=== PATIENT | female | born 1965 | race Caucasian/White ===

== ENCOUNTER 2016-08-17 20:36 | Emergency (ER) | payer MEDICAID ==
[2016-08-17] MEDS ORDERED: IBUPROFEN 600 MG TABLET PO STA (20:58)
[2016-08-17] MEDS ORDERED: IBUPROFEN 600 MG TABLET PO ONE (21:13)
[2016-08-17] MEDS ORDERED: METHOCARBAMOL 500 MG TABLET PO STA (21:55)
[2016-08-17] MEDS ORDERED: METHOCARBAMOL 500 MG TABLET PO ONE (21:58)
== END 2016-08-17 22:02 | disposition home or self-care (01) ==
DX: S80.212A Abrasion, left knee, initial encounter (principal); S80.211A Abrasion, right knee, initial encounter; S60.512A Abrasion of left hand, initial encounter; S60.511A Abrasion of right hand, initial encounter; S50.312A Abrasion of left elbow, initial encounter; W18.39XA Other fall on same level, initial encounter; R55 Syncope and collapse; M79.1 Myalgia; I10 Essential (primary) hypertension; E78.00 Pure hypercholesterolemia, unspecified; K21.9 Gastro-esophageal reflux disease without esophagitis
CPT/HCPCS: 73080; 73564; 80306; 81003; 93005; 93010; 99284; A9270

== ENCOUNTER 2016-09-18 16:32 | Outpatient (CLI) | payer MEDICAID | END 2016-09-18 16:33 | disposition home or self-care (01) | DX: M77.32 Calcaneal spur, left foot (principal); M25.561 Pain in right knee ==

== ENCOUNTER 2016-11-23 17:40 | Emergency (ER) | payer MEDICAID ==
[2016-11-23] MEDS ORDERED: CLINDAMYCIN 150 MG CAPSULE PO STA (19:15)
[2016-11-23] MEDS ORDERED: HYDROcod/ACETAM 5/325 MG TABLET PO STA (19:18)
--- NOTE | 2016-11-23 19:18 | ED Physician Documentation ---
PD HPI SKIN - Stated complaint Stated Complaint: SPIDER BITE - Chief complaint Chief Complaint: Wound - History obtained from History obtained from: Patient - History of Present Illness Timing - onset: How many days ago (2) Timing - duration: Days (2) Timing - details: Gradual onset Pain level max: 3 Pain level now: 3 Location: Other (R wrist) Quality / character: Painful, Swelling, Draining (states drained pus) Improved by: Other (hasn't taken anything) Worsened by (comment): COMMENT (nothing) Associated symptoms: No: Fever, Myalgias, Joint pain, Headache Contributing factors: Unknown - Additional information Additional information: Patient is a 51-year-old female who states that she noticed a red swollen spot on her arm several days ago. States that this drained pus and there is now increasing redness around this area. Review of Systems Constitutional: denies: Fever GI: denies: Abdominal Pain, Vomiting Musculoskeletal: denies: Neck pain Neurologic: denies: Headache PD PAST MEDICAL HISTORY - Past Medical History Past Medical History: Yes Cardiovascular: Hypertension, High cholesterol Respiratory: None Neuro: None Endocrine/Autoimmune: None GI: GERD CAPACITY MANAGEMENT SPECIALIST: None : None HEENT: None Psych: Anxiety, Panic attacks Musculoskeletal: None Derm: None - Past Surgical History Past Surgical History: Yes General: Cholecystectomy /CAPACITY MANAGEMENT SPECIALIST: Hysterectomy - Present Medications Home Medications: Ambulatory Orders Medication Instructions Recorded Confirmed Citalopram [CeleXA] 50 mg PO DAILY 02/09/15 08/17/16 Gabapentin 1,800 mg PO DAILY 02/09/15 08/17/16 Lisinopril [Zestril] 2.5 mg PO DAILY 02/09/15 08/17/16 busPIRone [Buspar] 7.5 mg PO DAILY 02/09/15 08/17/16 Cetirizine [ZyrTEC] 10 mg PO DAILY 11/23/16 11/23/16 Clindamycin HCl 300 mg PO Q6H #28 capsule 11/23/16 Estradiol [Estrace] 1 mg PO DAILY 11/23/16 11/23/16 Gemfibrozil [Lopid] 600 mg PO DAILY 11/23/16 11/23/16 Hydrocodone/Acetaminophen 1 - 2 each PO Q6H PRN #7 tablet 11/23/16 [Hydrocodon-Acetaminophen 5-325] Hydroxyzine HCl 50 mg PO DAILY 11/23/16 11/23/16 Omeprazole [Omeprazole] 40 mg PO DAILY 11/23/16 11/23/16 Rizatriptan Benzoate [Rizatriptan] 5 mg PO DAILY 11/23/16 11/23/16 - Allergies Allergies/Adverse Reactions: Allergies Allergy/AdvReac Type Severity Reaction Status Date / Time amoxicillin trihydrate * Allergy Rash Verified 11/23/16 17:55 [From Augmentin] diphenhydramine HCl * Allergy Respiratory Verified 11/23/16 17:55 [From Benadryl] morphine Allergy Rash Verified 11/23/16 17:55 potassium clavulanate * Allergy Rash Verified 11/23/16 17:55 [From Augmentin] aspirin AdvReac Unknown Unknown Verified 11/23/16 17:55 cephalexin monohydrate * AdvReac Unknown Rash Verified 11/23/16 17:55 [From Keflex] erythromycin base AdvReac Unknown Rash Verified 11/23/16 17:55 [Erythromycin Base] Sulfa (Sulfonamide AdvReac Unknown Rash Verified 11/23/16 17:55 Antibiotics) bees AdvReac Unknown Emesis Uncoded 11/23/16 17:55 - Social History Does the pt smoke?: No Smoking Status: Never smoker Does the pt drink ETOH?: No Does the pt have substance abuse?: No - Immunizations Immunizations are current?: Yes - POLST Patient has POLST: No PD ED PE NORMAL - Vitals Vital signs reviewed: Yes - General General: Alert and oriented X 3, No acute distress - Derm Derm: Warm and dry - Extremities Extremities: Other (Right wrist, dorsal aspect 2 small lesions with approximately 1.5 cm of surrounding erythema. No lymphangitis. No drainable abscess. No induration.) - Neuro Neuro: Alert and oriented X 3 - Psych Psych: Normal mood, Normal affect Results - Vitals Vitals: Vital Signs - 24 hr 11/23/16 11/23/16 17:52 19:45 Temperature 36.6 C Heart Rate 108 H 82 Respiratory 14 Rate Blood Pressure 115/75 109/77 O2 Saturation 98 98 Oxygen O2 Source Room air PD MEDICAL DECISION MAKING - ED course Complexity details: considered differential, d/w patient ED course: Patient with cellulitis of the right wrist. There is nothing to culture. She has already drained to the wound at home. Will place on antibiotics and follow- up with her PCP. Patient counseled regarding signs and symptoms for which I believe and urgent re-evaluation would be necessary. Patient with good understanding of and agreement to plan and is comfortable going home at this time This document was made in part using voice recognition software. While efforts are made to proofread this document, sound alike and grammatical errors may occur. Departure - Departure Disposition: Home, Self Care Clinical Impression: Cellulitis Qualifiers: Site of cellulitis: extremity Site of cellulitis of extremity: upper extremity Laterality: right Qualified Code(s): L03.113 - Cellulitis of right upper limb Condition: Good Instructions: ED Infec Skin Cellulitis Follow-Up: your,doctor in 3 days [Other] Prescriptions: Clindamycin HCl 300 mg PO Q6H #28 capsule Hydrocodone/Acetaminophen [Hydrocodon-Acetaminophen 5-325] 1 - 2 each PO Q6H PRN #7 tablet PRN Reason: pain Comments: Take all antibiotics until gone. Return if you worsen. Do not drink alcohol or drive while on narcotic pain medicine. Note that many narcotic pain relievers also contain tylenol/acetaminophen. Please ensure that your total dose of acetaminophen from all sources does not exceed 3 grams (3000mg) per day. You may constipated on this medication, take a stool softener such as "Colace" twice a day while you are on it. Also recommend a ypyf-ikz-rnbifky laxative such as senna or MiraLAX any day that you do not have a bowel movement. If you received narcotic pain medication in the emergency department, do not drive or operate machinery for the next 24 hours. Discharge Date/Time: 11/23/16 19:45
[2016-11-23] MEDS ORDERED: HYDROcod/ACETAM 5/325 MG TABLET ONE (19:25)
[2016-11-23] MEDS ORDERED: CLINDAMYCIN 150 MG CAPSULE PO ONE (19:25)
[2016-11-23 19:45] VITALS: BP 109/77
== END 2016-11-23 19:45 | disposition home or self-care (01) ==
LOC: ED 17:40
DX: L03.113 Cellulitis of right upper limb (principal); I10 Essential (primary) hypertension
CPT/HCPCS: 99283; A9270

== ENCOUNTER 2017-08-04 00:04 | Emergency (ER) | payer MEDICAID ==
[2017-08-04] MEDS ORDERED: LORazepam 0.5 MG TABLET PO STA (00:20)
--- NOTE | 2017-08-04 00:20 | ED Physician Documentation ---
PD HPI MHE - Stated complaint Stated Complaint: ANXIETY - Chief complaint Chief Complaint: MHE - History obtained from History obtained from: Patient, Friend - History of Present Illness Primary symptom: Anxiety Timing - onset: Yesterday Contributing factors: Family Similar symptoms before: Work up / diagnostics Recently seen: Not recently seen - Additional information Additional information: Patient is a 52 year old female with a history of anxiety who is presenting to the emergency department for a panic attack and left sided leg pain. patient states that she has her daughter, her daughter's boyfriend and grand children living in her house and it is getting overwhelming. Patient states that she has had multiple panic attacks the last few days. patient reports that she has an appointment with her psychiatrist this week. Patient also complains of left thigh pain and spasm. Patient denies any trauma. Review of Systems Constitutional: denies: Fever, Chills Eyes: reports: Reviewed and negative Ears: reports: Reviewed and negative Nose: reports: Reviewed and negative Throat: reports: Reviewed and negative Cardiac: denies: Chest pain / pressure Respiratory: reports: Reviewed and negative GI: denies: Nausea, Vomiting : reports: Reviewed and negative Skin: denies: Rash, Lesions Musculoskeletal: reports: Extremity pain Neurologic: denies: Generalized weakness, Focal weakness, Numbness Psychiatric: reports: Anxiety Immunocompromised: denies: Immunocompromised PD PAST MEDICAL HISTORY - Past Medical History Cardiovascular: Hypertension, High cholesterol Respiratory: None Neuro: None Endocrine/Autoimmune: None GI: GERD TELEPHONE LINEWORKER: None : None HEENT: None Psych: Anxiety, Panic attacks Musculoskeletal: None Derm: None - Past Surgical History Past Surgical History: Yes General: Cholecystectomy /TELEPHONE LINEWORKER: Hysterectomy HEENT: Tonsil/Adenoidectomy - Present Medications Home Medications: Ambulatory Orders Medication Instructions Recorded Confirmed Citalopram [CeleXA] 50 mg PO DAILY 02/09/15 04/08/17 Gabapentin 1,800 mg PO DAILY 02/09/15 04/08/17 Lisinopril [Zestril] 2.5 mg PO DAILY 02/09/15 04/08/17 busPIRone [Buspar] 7.5 mg PO DAILY 02/09/15 04/08/17 Cetirizine [ZyrTEC] 10 mg PO DAILY 11/23/16 04/08/17 Estradiol [Estrace] 1 mg PO DAILY 11/23/16 04/08/17 Gemfibrozil [Lopid] 600 mg PO DAILY 11/23/16 04/08/17 Omeprazole [Omeprazole] 40 mg PO DAILY 11/23/16 04/08/17 Rizatriptan Benzoate [Rizatriptan] 5 mg PO DAILY 11/23/16 04/08/17 hydrOXYzine HCl [Hydroxyzine HCl] 50 mg PO DAILY 11/23/16 04/08/17 Acetaminophen/Cod 300/30 [Tylenol 1 each PO Q4-6H PRN #7 tablet 04/08/17 #3] Ketotifen Fumarate [Zaditor] 1 drops RIGHTEYE Q8H PRN #1 drops 04/08/17 diazePAM [Valium] 5 - 10 mg PO TID PRN #10 tablet 08/04/17 - Allergies Allergies/Adverse Reactions: Allergies Allergy/AdvReac Type Severity Reaction Status Date / Time amoxicillin trihydrate * Allergy Rash Verified 08/04/17 00:21 [From Augmentin] diphenhydramine HCl * Allergy Respiratory Verified 08/04/17 00:21 [From Benadryl] morphine Allergy Rash Verified 08/04/17 00:21 potassium clavulanate * Allergy Rash Verified 08/04/17 00:21 [From Augmentin] aspirin AdvReac Unknown Unknown Verified 08/04/17 00:21 cephalexin monohydrate * AdvReac Unknown Rash Verified 08/04/17 00:21 [From Keflex] erythromycin base AdvReac Unknown Rash Verified 08/04/17 00:21 [Erythromycin Base] Sulfa (Sulfonamide AdvReac Unknown Rash Verified 08/04/17 00:21 Antibiotics) bees AdvReac Unknown Emesis Uncoded 08/04/17 00:21 - Social History Does the pt smoke?: No Smoking Status: Never smoker Does the pt drink ETOH?: No Does the pt have substance abuse?: No - Immunizations Immunizations are current?: Yes - POLST Patient has POLST: No PD ED PE NORMAL - Vitals Vital signs reviewed: Yes - General General: Alert and oriented X 3 - HEENT HEENT: Atraumatic, Moist mucous membranes - Neck Neck: Supple, no meningeal sign - Cardiac Cardiac: RRR - Respiratory Respiratory: No respiratory distress - Abdomen Abdomen: Soft, Non tender, Non distended - Derm Derm: Normal color, Warm and dry, No rash - Extremities Extremities: No deformity - Neuro Neuro: Alert and oriented X 3, No motor deficit, No sensory deficit, Normal speech Eye Opening: Spontaneous Motor: Obeys Commands Verbal: Oriented GCS Score: 15 PD ED PE EXPANDED - General General: Anxious - Extremities Extremities: Left thigh (mild tenderness to palpation of left thigh no ecchymosis, rash or deformity) Results - Vitals Vitals: Vital Signs - 24 hr 08/04/17 08/04/17 08/04/17 00:05 00:41 01:11 Temperature 36.5 C 36.8 C Heart Rate 91 84 85 Respiratory 16 15 12 Rate Blood Pressure 131/92 H 117/72 113/66 O2 Saturation 100 98 100 Oxygen O2 Source Room air PD MEDICAL DECISION MAKING - ED course Complexity details: reviewed old records, reviewed results, re-evaluated patient , considered differential, d/w family ED course: Patient was seen and examined at bedside. patient was treated with ativan 1mg with good relief. Patient required no further testing at this time and was stable for discharge with outpatient follow up. Departure - Departure Disposition: 01 Home, Self Care Clinical Impression: Anxiety Condition: Good Instructions: ED Panic Attack Follow-Up: Lazaro Spring MD [Primary Care Provider] - Within 3 Days Prescriptions: diazePAM [Valium] 5 - 10 mg PO TID PRN #10 tablet PRN Reason: Spasms Comments: Your symptoms today are being caused by anxiety, and your leg pain is likely muscle spasm. the valium should help both problems. You should also make sure you stay well hydrated and drink electrolyte solution (gatorade). You should follow up with your appointment with your psychiatrist. You may return to the emergency department at any time for new, worsening or uncontrollable symptoms.
[2017-08-04 01:12] VITALS: BP 113/66
== END 2017-08-04 01:10 | disposition home or self-care (01) ==
LOC: ED 00:04
DX: F41.9 Anxiety disorder, unspecified (principal); M79.651 Pain in right thigh; I10 Essential (primary) hypertension; E78.00 Pure hypercholesterolemia, unspecified
CPT/HCPCS: 99283; A9270

== ENCOUNTER 2017-09-09 13:43 | Emergency (ER) | payer MEDICAID ==
[2017-09-09 14:02] VITALS: BP 119/66
--- NOTE | 2017-09-09 15:47 | XRAY Preliminary Report ---
Exam: XR HIP W/PELVIS 2-3V LT IMPRESSION: 1. No fracture or bony malalignment. 2. Mild degenerative change. [facility] SITE ID: [id number]
--- NOTE | 2017-09-09 15:47 | XRAY Report ---
EXAM: LEFT HIP AND PELVIS RADIOGRAPHY EXAM DATE: 09/09/2017 02:55 PM. HISTORY: Left hip pain. Fell 3 days ago. COMPARISONS: None. TECHNIQUE: 3 views including AP pelvis. FINDINGS: Bones: No acute fracture or bone destructive process. Joints: No subluxation. Mild age-related degenerative changes of bilateral hip and SI joints. Intact pubic symphysis. IMPRESSION: 1. No fracture or bony malalignment. 2. Mild degenerative change. [facility] Referring Provider Line: [phone] SITE ID: [id number]
--- NOTE | 2017-09-09 15:50 | XRAY Report ---
EXAM: LEFT KNEE RADIOGRAPHY EXAM DATE: 09/09/2017 02:55 PM. CLINICAL HISTORY: Knee pain. Fell 3 days ago. COMPARISON: None. TECHNIQUE: 4 views. FINDINGS: Bones: No fracture or bone lesion. Intact patella. Joints: No subluxation. Equivocal small joint effusion. Joint spaces are preserved. Minor inferior pa tellar marginal spur. Soft Tissues: No significant findings identified. IMPRESSION: 1. No fracture or bony malalignment. 2. Equivocal small joint effusion. [facility] Referring Provider Line: [phone] SITE ID: [id number]
--- NOTE | 2017-09-09 15:50 | XRAY Preliminary Report ---
Exam: XR KNEE 4 VIEW LT IMPRESSION: 1. No fracture or bony malalignment. 2. Equivocal small joint effusion. [facility] SITE ID: [id number]
== END 2017-09-09 15:40 | disposition left against medical advice (07) ==
LOC: ED 13:43
DX: M25.561 Pain in right knee (principal); Z91.81 History of falling

== ENCOUNTER 2017-09-27 23:35 | Emergency (ER) | payer MEDICAID ==
[2017-09-27] MEDS ORDERED: DEXAMETHASONE 10 MG/ML VIAL PO STA (23:53)
[2017-09-27] MEDS ORDERED: ACETAMINOPHEN 500 MG TABLET PO STA (23:53)
[2017-09-27] MEDS ORDERED: LIDOCAINE PATCH 5% TOP STA (23:53)
--- NOTE | 2017-09-27 23:54 | ED Physician Documentation ---
PD HPI LOWER EXT INJURY - Stated complaint Stated Complaint: KIKE HIP,BACK,LEG PAIN - Chief complaint Chief Complaint: Trauma Ext - History obtained from History obtained from: Patient - History of Present Illness PD HPI LOW EXT INJURY LOCATION: Left, Hip, Upper leg Type of injury: Fall Where injury occurred: Home Timing - onset: How many weeks ago (3) Timing - details: Still present, Intermittant, Waxing and waning Worsened by: Palpating Associated symptoms: No: Weakness, Numbness Similar symptoms before: Work up / diagnostics Recently seen: Emergency Dept - Additional information Additional information: Patient is a 52 year old female presenting to the emergency department for leg and arm pain. patient states that she fell about three weeks ago. Imaging done at that time was within normal limits. patient states that she had to hold her grandchild on her lap for awhile today and her leg started to hurt. she also reports that she has a hard time sleeping on that side due to pain. Patient denied any new trauma. Review of Systems Ten Systems: 10 systems reviewed and negative : denies: Unable to Void, Incontinent Musculoskeletal: reports: Extremity pain, Joint pain. 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: None : None HEENT: None Psych: Anxiety, Panic attacks Musculoskeletal: None Derm: None - Past Surgical History Past Surgical History: Yes General: Cholecystectomy /OBSERVATION ASSISTANT: Hysterectomy HEENT: Tonsil/Adenoidectomy - Present Medications Home Medications: Ambulatory Orders Medication Instructions Recorded Confirmed Citalopram [CeleXA] 50 mg PO DAILY 02/09/15 04/08/17 Gabapentin 1,800 mg PO DAILY 02/09/15 04/08/17 Lisinopril [Zestril] 2.5 mg PO DAILY 02/09/15 04/08/17 busPIRone [Buspar] 7.5 mg PO DAILY 02/09/15 04/08/17 Cetirizine [ZyrTEC] 10 mg PO DAILY 11/23/16 04/08/17 Estradiol [Estrace] 1 mg PO DAILY 11/23/16 04/08/17 Gemfibrozil [Lopid] 600 mg PO DAILY 11/23/16 04/08/17 Omeprazole [Omeprazole] 40 mg PO DAILY 11/23/16 04/08/17 Rizatriptan Benzoate [Rizatriptan] 5 mg PO DAILY 11/23/16 04/08/17 hydrOXYzine HCl [Hydroxyzine HCl] 50 mg PO DAILY 11/23/16 04/08/17 Acetaminophen/Cod 300/30 [Tylenol 1 each PO Q4-6H PRN #7 tablet 04/08/17 #3] Ketotifen Fumarate [Zaditor] 1 drops RIGHTEYE Q8H PRN #1 drops 04/08/17 diazePAM [Valium] 5 - 10 mg PO TID PRN #10 tablet 08/04/17 Cyclobenzaprine [Flexeril] 10 mg PO TID PRN #10 tablet 09/28/17 Lidocaine Patch 5% [Lidoderm Patch] 1 each TOP DAILY #10 patch 09/28/17 - Allergies Allergies/Adverse Reactions: Allergies Allergy/AdvReac Type Severity Reaction Status Date / Time amoxicillin trihydrate * Allergy Rash Verified 09/27/17 23:46 [From Augmentin] diphenhydramine HCl * Allergy Respiratory Verified 09/27/17 23:46 [From Benadryl] morphine Allergy Rash Verified 09/27/17 23:46 potassium clavulanate * Allergy Rash Verified 09/27/17 23:46 [From Augmentin] aspirin AdvReac Unknown Unknown Verified 09/27/17 23:46 cephalexin monohydrate * AdvReac Unknown Rash Verified 09/27/17 23:46 [From Keflex] erythromycin base AdvReac Unknown Rash Verified 09/27/17 23:46 [Erythromycin Base] Sulfa (Sulfonamide AdvReac Unknown Rash Verified 09/27/17 23:46 Antibiotics) bees AdvReac Unknown Emesis Uncoded 08/04/17 00:21 - Social History Does the pt smoke?: Yes Smoking Status: Current every day smoker Does the pt drink ETOH?: No Does the pt have substance abuse?: Yes - Immunizations Immunizations are current?: Yes - POLST Patient has POLST: No PD ED PE NORMAL - Vitals Vital signs reviewed: Yes - General General: Alert and oriented X 3, No acute distress - HEENT HEENT: Atraumatic - Neck Neck: No bony TTP - Cardiac Cardiac: RRR - Respiratory Respiratory: No respiratory distress - Abdomen Abdomen: Non distended - Derm Derm: Normal color, Warm and dry - Extremities Extremities: No deformity, Normal ROM s pain, No edema - Neuro Neuro: Alert and oriented X 3, No motor deficit, Normal speech PD ED PE EXPANDED - Extremities Extremities: Left shoulder (mild tenderness of left shoulder, full rom, no deformity), Left hip (mild tenderness of left hip and thigh, no deformity, full rom) Results - Vitals Vitals: Vital Signs - 24 hr 09/27/17 09/28/17 23:43 00:15 Temperature 36.9 C Heart Rate 106 H 98 Respiratory 17 16 Rate Blood Pressure 136/70 H 126/70 O2 Saturation 100 98 Oxygen O2 Source Room air PD MEDICAL DECISION MAKING - ED course Complexity details: reviewed old records, reviewed results, re-evaluated patient , considered differential, d/w patient ED course: Patient was seen and examined at bedside. patient was well appearing and in no distress. patient had no new trauma and had full rom. No imaging was required at this time. patient was treated with tylenol, decadron and lidoderm. Patient required no further work up at this time and was stable for discharge with outpatient follow up. Departure - Departure Disposition: 01 Home, Self Care Clinical Impression: Leg pain Condition: Good Instructions: ED Strain Muscle Ext Follow-Up: Lazaro Spring MD [Primary Care Provider] - Within 3 Days Prescriptions: Cyclobenzaprine [Flexeril] 10 mg PO TID PRN #10 tablet PRN Reason: Spasms Lidocaine Patch 5% [Lidoderm Patch] 1 each TOP DAILY #10 patch Comments: Your x-rays were reviewed and there were no acute fractures or dislocations. You should continue taking tylenol for pain control. You should also alternate between ice and heat and introduce stretching. You should follow up with your doctor if your symptoms persist. You may return to the emergency department at any time for new, worsening or uncontrollable symptoms. Discharge Date/Time: 09/28/17 00:27
[2017-09-28] MEDS ORDERED: CHERRY SYRUP 10 ML UDC PO ONE (00:09)
[2017-09-28 00:16] VITALS: BP 126/70
== END 2017-09-28 00:27 | disposition home or self-care (01) ==
LOC: ED 23:35
DX: M79.605 Pain in left leg (principal); I10 Essential (primary) hypertension; E78.00 Pure hypercholesterolemia, unspecified; F17.200 Nicotine dependence, unspecified, uncomplicated; Z91.81 History of falling
CPT/HCPCS: 99283; A9270

== ENCOUNTER 2017-11-05 01:32 | Emergency (ER) | payer MEDICAID ==
[2017-11-05] MEDS ORDERED: DEXAMETHASONE 10 MG/ML VIAL PO STA (01:50)
[2017-11-05] MEDS ORDERED: KETOROLAC 60 MG/2 ML VIAL IM STA (01:50)
[2017-11-05] MEDS ORDERED: ONDANSETRON ODT 4 MG TABLET TL STA (01:50)
[2017-11-05] MEDS ORDERED: CHERRY SYRUP 10 ML UDC PO ONE (02:04)
[2017-11-05] MEDS ORDERED: ONDANSETRON ODT 4 MG Prepack 2 TL STA (02:13)
--- NOTE | 2017-11-05 02:13 | ED Physician Documentation ---
History of Present Illness - Stated complaint Stated Complaint: ANXIETY,VOMITING,FEVER - Chief complaint Chief Complaint: General - History obtained from History obtained from: Patient - History of Present Illness Timing: How many days ago (4) - Additonal information Additional information: Patient is a 52 year old female with a history of anxiety who is presenting to the emergency department for anxiety and vomiting. patient states that on , (4 days prior) Patient smoked some marijuana and it was laced with either ecstasy or cocaine, the next day patient did a "dab" as well. Patient states that since she has had intermittent nausea and vomiting as well as feeling anxious. Patient also reports a sore throat and swelling in her glands. Review of Systems Constitutional: denies: Fever, Chills Nose: denies: Congestion Throat: reports: Sore throat Cardiac: denies: Chest pain / pressure, Palpitations GI: reports: Nausea, Vomiting. denies: Constipation, Diarrhea : reports: Reviewed and negative Skin: denies: Rash, Lesions Psychiatric: reports: Anxiety. denies: Suicidal, Homicidal PD PAST MEDICAL HISTORY - Past Medical History Past Medical History: Yes Cardiovascular: Hypertension, High cholesterol Respiratory: None Neuro: None Endocrine/Autoimmune: None GI: GERD TREE CUTTER: None : None HEENT: None Psych: Anxiety, Panic attacks Musculoskeletal: None Derm: None - Past Surgical History Past Surgical History: Yes General: Cholecystectomy /TREE CUTTER: Hysterectomy HEENT: Tonsil/Adenoidectomy - Present Medications Home Medications: Ambulatory Orders Medication Instructions Recorded Confirmed Citalopram [CeleXA] 50 mg PO DAILY 02/09/15 04/08/17 Gabapentin 1,800 mg PO DAILY 02/09/15 04/08/17 Lisinopril [Zestril] 2.5 mg PO DAILY 02/09/15 04/08/17 busPIRone [Buspar] 7.5 mg PO DAILY 02/09/15 04/08/17 Cetirizine [ZyrTEC] 10 mg PO DAILY 11/23/16 04/08/17 Estradiol [Estrace] 1 mg PO DAILY 11/23/16 04/08/17 Gemfibrozil [Lopid] 600 mg PO DAILY 11/23/16 04/08/17 Omeprazole [Omeprazole] 40 mg PO DAILY 11/23/16 04/08/17 Rizatriptan Benzoate [Rizatriptan] 5 mg PO DAILY 11/23/16 04/08/17 hydrOXYzine HCl [Hydroxyzine HCl] 50 mg PO DAILY 11/23/16 04/08/17 Acetaminophen/Cod 300/30 [Tylenol 1 each PO Q4-6H PRN #7 tablet 04/08/17 #3] Ketotifen Fumarate [Zaditor] 1 drops RIGHTEYE Q8H PRN #1 drops 04/08/17 diazePAM [Valium] 5 - 10 mg PO TID PRN #10 tablet 08/04/17 Cyclobenzaprine [Flexeril] 10 mg PO TID PRN #10 tablet 09/28/17 Lidocaine Patch 5% [Lidoderm Patch] 1 each TOP DAILY #10 patch 09/28/17 Ondansetron Odt [Zofran] 4 mg TL Q6H PRN #14 tablet 11/05/17 - Allergies Allergies/Adverse Reactions: Allergies Allergy/AdvReac Type Severity Reaction Status Date / Time amoxicillin trihydrate * Allergy Rash Verified 11/05/17 01:43 [From Augmentin] diphenhydramine HCl * Allergy Respiratory Verified 11/05/17 01:43 [From Benadryl] morphine Allergy Rash Verified 11/05/17 01:43 potassium clavulanate * Allergy Rash Verified 11/05/17 01:43 [From Augmentin] aspirin AdvReac Unknown Unknown Verified 11/05/17 01:43 cephalexin monohydrate * AdvReac Unknown Rash Verified 11/05/17 01:43 [From Keflex] erythromycin base AdvReac Unknown Rash Verified 11/05/17 01:43 [Erythromycin Base] Sulfa (Sulfonamide AdvReac Unknown Rash Verified 11/05/17 01:43 Antibiotics) bees AdvReac Unknown Emesis Uncoded 08/04/17 00:21 - Social History Does the pt smoke?: Yes Smoking Status: Current every day smoker Does the pt drink ETOH?: No Does the pt have substance abuse?: Yes Substance Use and Type: Marijuana - Immunizations Immunizations are current?: Yes - POLST Patient has POLST: No PD ED PE NORMAL - Vitals Vital signs reviewed: Yes - General General: Alert and oriented X 3 - HEENT HEENT: Atraumatic - Cardiac Cardiac: RRR - Respiratory Respiratory: No respiratory distress - Abdomen Abdomen: Non distended - Derm Derm: Normal color, Warm and dry - Extremities Extremities: No deformity - Neuro Neuro: Alert and oriented X 3, No motor deficit Eye Opening: Spontaneous Motor: Obeys Commands Verbal: Oriented GCS Score: 15 PD ED PE EXPANDED - HEENT HEENT: Pharyngeal erythema. 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 No: Depressed, Suicidal, Homicidal Results - Vitals Vitals: Vital Signs - 24 hr 11/05/17 11/05/17 01:41 01:58 Temperature 36.9 C Heart Rate 108 H Respiratory 17 17 Rate Blood Pressure 150/86 H O2 Saturation 99 Oxygen O2 Source Room air - Labs Labs: Laboratory Tests 11/05/17 01:47 Group A Strep Rapid Negative PD MEDICAL DECISION MAKING - ED course Complexity details: reviewed old records, reviewed results, re-evaluated patient , considered differential, d/w patient ED course: Patient was seen and examined at bedside. rapid strep was performed. patient was treated with zofran and decadron. Patient's rapid strep was negative. patient was able to tolerate PO without difficulty. Patient required no further work up and was stable for discharge with outpatient follow up. Departure - Departure Disposition: 01 Home, Self Care Clinical Impression: Vomiting Condition: Good Instructions: ED Nausea Vomiting Follow-Up: Lazaro Spring MD [Primary Care Provider] - Within 3 Days Prescriptions: Ondansetron Odt [Zofran] 4 mg TL Q6H PRN #14 tablet PRN Reason: Nausea / Vomiting Comments: Your diagnostics today were within normal limits. Rapid strep is negative but it will be sent for a throat culture. You can take the zofran as needed for nausea and make sure you stay well hydrated. You should follow up with your doctor if your symptoms persist. You may return to the emergency department at any time for new, worsening or uncontrollable symptoms.
[2017-11-05 02:20] VITALS: BP 135/83
== END 2017-11-05 02:21 | disposition home or self-care (01) ==
LOC: ED 01:32
DX: R11.10 Vomiting, unspecified (principal); I10 Essential (primary) hypertension; E78.00 Pure hypercholesterolemia, unspecified; F17.200 Nicotine dependence, unspecified, uncomplicated
CPT/HCPCS: 87070; 87077; 87430; 99282; 99283; A9270; Q0162

== ENCOUNTER 2018-04-27 20:41 | Emergency (ER) | payer MEDICAID ==
[2018-04-27 20:54] VITALS: BP 108/72
--- NOTE | 2018-04-27 22:34 | ED Physician Documentation ---
PD HPI SKIN - Stated complaint Stated Complaint: ITCHING ALL OVER - Chief complaint Chief Complaint: Allergic Rx - History obtained from History obtained from: Patient - History of Present Illness Timing - onset: How many days ago (2-3) Timing - duration: Days Timing - details: Gradual onset, Still present, Waxing and waning Location: Bodywide Quality / character: Itchy, Burning Associated symptoms: No: Fever, Myalgias, Facial swelling, Dyspnea, N/V/D Contributing factors: Exposed to medication (on abx for UTI, and has had swelling) Similar symptoms before: Has not had sx before Recently seen: Not recently seen Review of Systems Constitutional: denies: Fever, Myalgias Ears: denies: Ear pain, Drainage/discharge, Tinnitus/ringing Nose: denies: Rhinorrhea / runny nose, Congestion Throat: denies: Sore throat, Swollen tonsils Cardiac: denies: Chest pain / pressure, Palpitations Respiratory: denies: Dyspnea, Cough, Wheezing Neurologic: reports: Generalized weakness. 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 : None HEENT: None Psych: Anxiety, Panic attacks Musculoskeletal: None Derm: None - Past Surgical History Past Surgical History: Yes General: Cholecystectomy /PIANO BUILDER: Hysterectomy HEENT: Tonsil/Adenoidectomy - Present Medications Home Medications: Ambulatory Orders Medication Instructions Recorded Confirmed Gabapentin 1,800 mg PO DAILY 02/09/15 04/08/17 Cetirizine [ZyrTEC] 10 mg PO DAILY 11/23/16 04/08/17 Gemfibrozil [Lopid] 600 mg PO DAILY 11/23/16 04/08/17 Omeprazole 40 mg PO DAILY 11/23/16 04/08/17 Cyclobenzaprine [Flexeril] 10 mg PO TID PRN #10 tablet 09/28/17 Dexamethasone [Decadron] 4 mg PO DAILY #5 tablet 04/27/18 LORazepam [Ativan] 1 mg PO ONCE 04/27/18 Vortioxetine Hydrobromide 04/27/18 [Trintellix] hydrOXYzine PAMOATE [Vistaril] 25 mg PO Q6H PRN #30 capsule 04/27/18 - Allergies Allergies/Adverse Reactions: Allergies Allergy/AdvReac Type Severity Reaction Status Date / Time amoxicillin trihydrate * Allergy Rash Verified 04/27/18 20:54 [From Augmentin] diphenhydramine HCl * Allergy Respiratory Verified 04/27/18 20:54 [From Benadryl] morphine Allergy Rash Verified 04/27/18 20:54 potassium clavulanate * Allergy Rash Verified 04/27/18 20:54 [From Augmentin] aspirin AdvReac Unknown Unknown Verified 04/27/18 20:54 cephalexin monohydrate * AdvReac Unknown Rash Verified 04/27/18 20:54 [From Keflex] erythromycin base AdvReac Unknown Rash Verified 04/27/18 20:54 [Erythromycin Base] Sulfa (Sulfonamide AdvReac Unknown Rash Verified 04/27/18 20:54 Antibiotics) bees AdvReac Unknown Emesis Uncoded 04/27/18 20:54 - Social History Does the pt smoke?: Yes Smoking Status: Current every day smoker Does the pt drink ETOH?: No Does the pt have substance abuse?: Yes - Immunizations Immunizations are current?: Yes - POLST Patient has POLST: No PD ED PE NORMAL - Vitals Vital signs reviewed: Yes - General General: Alert and oriented X 3, Well developed/nourished, Other (ppears itchy) - HEENT HEENT: Pharynx benign - Neck Neck: Supple, no meningeal sign, No adenopathy - Cardiac Cardiac: RRR, No murmur - Respiratory Respiratory: Clear bilaterally - Abdomen Abdomen: Non tender - Female Female : Pt declined - Back Back: No spinal TTP Results - Vitals Vitals: Oxygen O2 Source Room air Departure - Departure Disposition: 01 Home, Self Care Clinical Impression: Pruritic rash Condition: Stable Record reviewed to determine appropriate education?: Yes Instructions: ED Allergic Reaction General Other Follow-Up: Lazaro Spring MD [Primary Care Provider] - Prescriptions: Dexamethasone [Decadron] 4 mg PO DAILY #5 tablet hydrOXYzine PAMOATE [Vistaril] 25 mg PO Q6H PRN #30 capsule PRN Reason: Itching Comments: Continue usual Zyrtec daily and other medications. Add hydroxyzine if needed for itching. Use Decadron steroid daily for 5 more days. Recheck if not improving into tomorrow and the next day. Follow-up with your primary care if not completely resolved over several days or if recurrent episodes in the near future. Discharge Date/Time: 04/27/18 23:53
[2018-04-27] MEDS ORDERED: DEXAMETHASONE 10 MG/ML VIAL PO STA (22:45)
[2018-04-27] MEDS ORDERED: ACETAMINOPHEN 325 MG TABLET PO STA (22:45)
[2018-04-27] MEDS ORDERED: hydrOXYzine PAMOATE 25 MG CAPSULE PO STA (22:45)
[2018-04-27] MEDS ORDERED: CHERRY SYRUP 10 ML UDC PO ONE (23:46)
== END 2018-04-27 23:53 | disposition home or self-care (01) ==
LOC: ED 20:41
DX: R21 Rash and other nonspecific skin eruption (principal); L29.9 Pruritus, unspecified; I10 Essential (primary) hypertension; F17.200 Nicotine dependence, unspecified, uncomplicated
CPT/HCPCS: 99283; A9270

== ENCOUNTER 2018-05-06 18:49 | Emergency (ER) | payer MEDICAID ==
[2018-05-06] MEDS ORDERED: ONDANSETRON 4 MG/2 ML VIAL IVP STA (19:03)
[2018-05-06] MEDS ORDERED: SODIUM CHLORIDE 0.9% 1,000 ML IV ONE (19:03)
[2018-05-06] MEDS ORDERED: KETOROLAC 15 MG/ML VIAL IVP STA (19:17)
[2018-05-06] MEDS ORDERED: fentaNYL 100 MCG/2 ML VIAL IVP STA (19:17)
[2018-05-06 19:28] LABS: BASOPHILS % (AUTO) 0.6 %; EOSINOPHILS # (AUTO) 0.2 10^3/uL (0.0-0.7); EOSINOPHILS % (AUTO) 2.9 %; HGB - HEMOGLOBIN 12.4 g/dL (12.0-16.0); LYMPHOCYTES # (AUTO) 2.9 10^3/uL (1.5-3.5); LYMPHOCYTES % (AUTO) 40.6 %; MEAN CORPUSCULAR HEMOGLOBIN 30.6 pg (27.0-31.0); MEAN CORPUSCULAR HGB CONC 34.6 g/dL (32.0-36.0); MEAN CORPUSCULAR VOLUME 88.4 fL (81.0-99.0); MEAN PLATELET VOLUME 7.8 fL (7.9-10.8); MONOCYTES # (AUTO) 0.5 10^3/uL (0.0-1.0); MONOCYTES % (AUTO) 6.6 %; NEUTROPHILS # (AUTO) 3.5 10^3/uL (1.5-6.6); NEUTROPHILS % (AUTO) 49.3 %; PLT - PLATELET COUNT 263 10^3/uL (130-450); RED BLOOD COUNT 4.04 10^6/uL (4.20-5.40); RED CELL DISTRIBUTION WIDTH 12.5 % (12.0-15.0); WHITE BLOOD COUNT 7.1 x10^3/uL (4.8-10.8)
[2018-05-06 19:37] LABS: BILIRUBIN,URINE NEGATIVE (NEGATIVE); GLUCOSE, URINE (UA) NEGATIVE (NEGATIVE); KETONES,URINE (UA) NEGATIVE (NEGATIVE); LEUKOCYTE ESTERASE, URINE TRACE (NEGATIVE); NITRITE,URINE NEGATIVE (NEGATIVE); OCCULT BLOOD,URINE NEGATIVE (NEGATIVE); PROTEIN,URINE NEGATIVE (NEGATIVE); UROBILINOGEN,URINE 0.2 (NORMAL) E.U./dL (NORMAL)
[2018-05-06 19:44] LABS: ALBUMIN 4.6 g/dL (3.2-5.5); ALBUMIN/GLOBULIN RATIO 1.3 (1.0-2.2); BILIRUBIN,TOTAL 0.3 mg/dL (0.2-1.0); CALCIUM 9.5 mg/dL (8.5-10.3); CREATININE 0.7 mg/dL (0.4-1.0); TOTAL PROTEIN 8.2 g/dL (6.7-8.2)
[2018-05-06] MEDS ORDERED: IOVERSOL 320 100 ML VIAL IVP ONE ×2 (19:46→20:59)
[2018-05-06 19:48] LABS: CLARITY,URINE CLEAR (CLEAR)
[2018-05-06 19:52] LABS: RBC,URINE None Seen /HPF (0-5); SQUAMOUS EPITHELIAL CELL,UR FEW Squamous (<= Few)
[2018-05-06 19:53] LABS: BACTERIA,URINE Rare /HPF (None Seen); CRYSTALS,URINE 3-5 Calcium Oxalate /LPF
--- NOTE | 2018-05-06 21:10 | CT Report ---
Reason: rlq pain Procedure Date: 05/06/2018 Accession Number: [id number] / [id number] Procedure: CT - Abdomen/Pelvis W/ CPT Code: FULL RESULT: EXAM: CT ABDOMEN AND PELVIS EXAM DATE: 05/06/2018 08:13 PM. CLINICAL HISTORY: Rlq pain. COMPARISONS: None. TECHNIQUE: Routine helical CT imaging was performed through the abdomen and pelvis. IV contrast: OPTIRAY 320 90mL. Enteric contrast: No. Reconstructions: Coronal and sagittal. In accordance with CT protocol optimization, one or more of the following dose reduction techniques were utilized for this exam: automated exposure control, adjustment of mA and/or KV based on patient size, or use of iterative reconstructive technique. FINDINGS: Lung Bases: Unremarkable. Liver: Normal. No masses. Gallbladder/Bile Ducts: Gallbladder is surgically absent. Spleen: Normal. Pancreas: Normal. Adrenal Glands: Normal. Kidneys: There is a 6 mm nonobstructing right kidney stone. No hydronephrosis or renal mass. Peritoneal Cavity/Bowel: Normal. No free fluid, free air or adenopathy. No masses or acute inflammatory process. The appendix is located within the low pelvis and appears normal. Pelvic Organs: Uterus is absent. Urinary bladder appears unremarkable. Vasculature: No aneurysms or other significant abnormality. Bones: There is endplate sclerosis and degenerative disease at L5-S1 of the spine. No fracture or subluxation. Other: None. IMPRESSION: 1. 6 mm nonobstructing right kidney stone. 2. Normal appendix. 3. Previous cholecystectomy. 4. No other localizing acute inflammatory process is demonstrated. RADIA
--- NOTE | 2018-05-06 22:16 | ED Physician Documentation ---
PD HPI ABD PAIN - Stated complaint Stated Complaint: VOMITING/ABD PX - Chief complaint Chief Complaint: Abd Pain - Additional information Additional information: 53-year-old female presents the emergency department with flank pain that radiat es into her abdomen that started this afternoon. The patient is denying dysuria, hematuria or focal abdominal pain. The patient reports that this is similar to when she had a kidney infection in the past. Symptoms are described as moderate. No triggering factors. No relieving factors. No other associated symptoms. Review of Systems Constitutional: reports: Chills. denies: Fever Eyes: denies: Discharge Ears: denies: Ear pain Throat: denies: Sore throat Cardiac: denies: Chest pain / pressure Respiratory: denies: Cough GI: reports: Abdominal Pain, Nausea, Other (flank pain) : denies: Dysuria, Unable to Void Skin: denies: Lesions Musculoskeletal: reports: Back pain Neurologic: denies: Generalized weakness Psychiatric: denies: Hallucinations Immunocompromised: denies: Chemotherapy PD PAST MEDICAL HISTORY - Past Medical History Past Medical History: Yes Cardiovascular: Hypertension, High cholesterol Respiratory: None Neuro: None Endocrine/Autoimmune: None GI: GERD IMPREGNATOR: None : None, Other HEENT: None Psych: Anxiety, Panic attacks Musculoskeletal: None Derm: None Other Past Medical History: cervical cancer - Past Surgical History Past Surgical History: Yes General: Cholecystectomy /IMPREGNATOR: Hysterectomy HEENT: Tonsil/Adenoidectomy - Present Medications Home Medications: Ambulatory Orders Medication Instructions Recorded Confirmed Gabapentin 1,800 mg PO DAILY 02/09/15 04/08/17 Cetirizine [ZyrTEC] 10 mg PO DAILY 11/23/16 04/08/17 Gemfibrozil [Lopid] 600 mg PO DAILY 11/23/16 04/08/17 Omeprazole 40 mg PO DAILY 11/23/16 04/08/17 Cyclobenzaprine [Flexeril] 10 mg PO TID PRN #10 tablet 09/28/17 Dexamethasone [Decadron] 4 mg PO DAILY #5 tablet 04/27/18 LORazepam [Ativan] 1 mg PO ONCE 04/27/18 Vortioxetine Hydrobromide 04/27/18 [Trintellix] hydrOXYzine PAMOATE [Vistaril] 25 mg PO Q6H PRN #30 capsule 04/27/18 Naproxen 500 mg PO BID PRN #60 tablet 05/06/18 Ondansetron HCl [Zofran] 4 mg PO Q6HR PRN #30 tablet 05/06/18 - Allergies Allergies/Adverse Reactions: Allergies Allergy/AdvReac Type Severity Reaction Status Date / Time amoxicillin trihydrate * Allergy Rash Verified 04/27/18 20:54 [From Augmentin] diphenhydramine HCl * Allergy Respiratory Verified 04/27/18 20:54 [From Benadryl] morphine Allergy Rash Verified 04/27/18 20:54 potassium clavulanate * Allergy Rash Verified 04/27/18 20:54 [From Augmentin] aspirin AdvReac Unknown Unknown Verified 04/27/18 20:54 cephalexin monohydrate * AdvReac Unknown Rash Verified 04/27/18 20:54 [From Keflex] erythromycin base AdvReac Unknown Rash Verified 04/27/18 20:54 [Erythromycin Base] Sulfa (Sulfonamide AdvReac Unknown Rash Verified 04/27/18 20:54 Antibiotics) bees AdvReac Unknown Emesis Uncoded 04/27/18 20:54 - Social History Does the pt smoke?: Yes Smoking Status: Current every day smoker Does the pt drink ETOH?: No Does the pt have substance abuse?: No Substance Use and Type: Marijuana, Other - Immunizations Immunizations are current?: Yes - POLST Patient has POLST: No PD ED PE NORMAL - General General: Alert and oriented X 3, No acute distress - HEENT HEENT: Atraumatic, PERRL, EOMI, Ears normal - Neck Neck: Supple, no meningeal sign - Cardiac Cardiac: RRR, Strong equal pulses - Respiratory Respiratory: No respiratory distress, Clear bilaterally - Abdomen Abdomen: Soft, Non distended. No: Non tender (The patient has tenderness in the right flank and right sided abdomen, no rebound or peritoneal signs) - Back Back: No spinal TTP - Derm Derm: Normal color - Extremities Extremities: No deformity, Normal ROM s pain, No edema - Neuro Neuro: Alert and oriented X 3, Normal speech - Psych Psych: Normal affect Results - Vitals Vitals: Vital Signs - 24 hr 05/06/18 05/06/18 18:59 20:51 Temperature 36.9 C 36.2 C L Heart Rate 98 72 Respiratory 18 16 Rate Blood Pressure 119/75 109/73 O2 Saturation 99 100 Oxygen O2 Source Room air - Labs Labs: Laboratory Tests 05/06/18 05/06/18 05/06/18 19:00 19:14 19:14 WBC 7.1 RBC 4.04 L Hgb 12.4 Hct 35.7 L MCV 88.4 MCH 30.6 MCHC 34.6 RDW 12.5 Plt Count 263 MPV 7.8 L Neut # (Auto) 3.5 Lymph # (Auto) 2.9 [place] # (Auto) 0.5 Eos # (Auto) 0.2 Baso # (Auto) 0.0 Absolute Nucleated RBC 0.00 Nucleated RBC % 0.0 Sodium 139 Potassium 3.3 L Chloride 102 Carbon Dioxide 29 Anion Gap 8.0 BUN 21 H Creatinine 0.7 Estimated GFR (MDRD) 88 L Glucose 109 H Calcium 9.5 Total Bilirubin 0.3 AST 15 ALT 19 Alkaline Phosphatase 67 Total Protein 8.2 Albumin 4.6 Globulin 3.6 Albumin/Globulin Ratio 1.3 Lipase 61 H Urine Color YELLOW Urine Clarity CLEAR Urine pH 6.0 Ur Specific [place] 1.025 Urine Protein NEGATIVE Urine Glucose (UA) NEGATIVE Urine Ketones NEGATIVE Urine Occult Blood NEGATIVE Urine Nitrite NEGATIVE Urine Bilirubin NEGATIVE Urine Urobilinogen 0.2 (NORMAL) Ur Leukocyte Esterase TRACE H Urine RBC None Seen Urine WBC 0-3 Ur Squamous Epith Cells FEW Squamous Urine Crystals 3-5 Calcium Oxalate Urine Bacteria Rare Ur Microscopic Review INDICATED Urine Culture Comments INDICATED - Rads (name of study) CT abd/pelvis Radiology: Final report received (IMPRESSION: 1. 6 mm nonobstructing right kidney stone. 2. Normal appendix. 3. Previous cholecystectomy. 4. No other localizing acute inflammatory process is demonstrated. ), See rad report PD MEDICAL DECISION MAKING - ED course ED course: Reevaluation the patient is resting comfortably and her workup does not show any acute abnormality that would necessitate admission to the hospital or acute surgical consultation. The patient appears appropriate for discharge and ongoing outpatient management. I discussed with her the findings and plan she understands and agrees. I discussed warning signs and recommended returning to the emergency department for any worsening or any concerns. Departure - Departure Disposition: 01 Home, Self Care Clinical Impression: Flank pain, acute, Kidney stone Condition: Good Instructions: Abdominal Pain, ED Flank Pain Uncertain Cause, ED Stone Kidney Undescended No Sx Follow-Up: Lazaro Spring MD [Primary Care Provider] - Prescriptions: Ondansetron HCl [Zofran] 4 mg PO Q6HR PRN #30 tablet PRN Reason: Nausea / Vomiting Naproxen 500 mg PO BID PRN #60 tablet PRN Reason: Pain Comments: Please return to the emergency department for worsening symptoms or any concerns
[2018-05-06 22:33] VITALS: BP 126/82
== END 2018-05-06 22:32 | disposition home or self-care (01) ==
LOC: ED 18:49
DX: N20.0 Calculus of kidney (principal); I10 Essential (primary) hypertension; F17.200 Nicotine dependence, unspecified, uncomplicated
CPT/HCPCS: 36415; 74177; 80053; 81001; 83690; 85025; 87086; 96361; 96374; 99283; 99284; Q9967; 81003

== ENCOUNTER 2018-05-19 12:05 | Emergency (ER) | payer MEDICAID ==
[2018-05-19 12:48] LABS: BASOPHILS % (AUTO) 0.6 %; EOSINOPHILS # (AUTO) 0.2 10^3/uL (0.0-0.7); EOSINOPHILS % (AUTO) 3.2 %; HGB - HEMOGLOBIN 12.6 g/dL (12.0-16.0); LYMPHOCYTES # (AUTO) 3.1 10^3/uL (1.5-3.5); MEAN CORPUSCULAR HEMOGLOBIN 30.1 pg (27.0-31.0); MEAN CORPUSCULAR HGB CONC 34.4 g/dL (32.0-36.0); MEAN CORPUSCULAR VOLUME 87.7 fL (81.0-99.0); MEAN PLATELET VOLUME 7.8 fL (7.9-10.8); MONOCYTES # (AUTO) 0.6 10^3/uL (0.0-1.0); MONOCYTES % (AUTO) 7.8 %; NEUTROPHILS # (AUTO) 3.4 10^3/uL (1.5-6.6); NEUTROPHILS % (AUTO) 46.4 %; PLT - PLATELET COUNT 245 10^3/uL (130-450); RED BLOOD COUNT 4.17 10^6/uL (4.20-5.40); RED CELL DISTRIBUTION WIDTH 12.8 % (12.0-15.0); WHITE BLOOD COUNT 7.4 x10^3/uL (4.8-10.8)
[2018-05-19 12:56] LABS: BILIRUBIN,URINE NEGATIVE (NEGATIVE); GLUCOSE, URINE (UA) NEGATIVE (NEGATIVE); KETONES,URINE (UA) NEGATIVE (NEGATIVE); LEUKOCYTE ESTERASE, URINE NEGATIVE (NEGATIVE); NITRITE,URINE NEGATIVE (NEGATIVE); OCCULT BLOOD,URINE NEGATIVE (NEGATIVE); PROTEIN,URINE NEGATIVE (NEGATIVE); UROBILINOGEN,URINE 0.2 (NORMAL) E.U./dL (NORMAL)
[2018-05-19 12:59] LABS: ALBUMIN 4.3 g/dL (3.2-5.5); ALBUMIN/GLOBULIN RATIO 1.1 (1.0-2.2); BILIRUBIN,TOTAL 0.3 mg/dL (0.2-1.0); CALCIUM 9.1 mg/dL (8.5-10.3); CREATININE 0.7 mg/dL (0.4-1.0); TOTAL PROTEIN 8.1 g/dL (6.7-8.2)
[2018-05-19 13:00] LABS: CLARITY,URINE CLEAR (CLEAR)
[2018-05-19 13:24] LABS: HCG UR QUAL NEGATIVE
[2018-05-19] MEDS ORDERED: ONDANSETRON 4 MG/2 ML VIAL IVP STA ×2 (14:08→15:47)
[2018-05-19] MEDS ORDERED: SODIUM CHLORIDE 0.9% 1,000 ML IV ONE (14:08)
[2018-05-19] MEDS ORDERED: HYDROmorphone 1 MG/ML CARPUJECT IVP STA (15:47)
--- NOTE | 2018-05-19 17:26 | CT Report ---
Reason: flank pain, hx kidney stone Procedure Date: 05/19/2018 Accession Number: [id number] / [id number] Procedure: CT - Abdomen/Pelvis W/O CPT Code: FULL RESULT: EXAM: CT ABDOMEN AND PELVIS (CT KUB) EXAM DATE: 05/19/2018 05:06 PM. CLINICAL HISTORY: Right flank pain. COMPARISONS: 05/06/2018. TECHNIQUE: Routine axial helical CT imaging was performed through the abdomen and pelvis without IV contrast. Reconstructions: Coronal and sagittal. In accordance with CT protocol optimization, one or more of the following dose reduction techniques were utilized for this exam: automated exposure control, adjustment of mA and/or KV based on patient size, or use of iterative reconstructive technique. FINDINGS: Lung Bases: Unremarkable. Right Kidney/Ureter: Nonobstructing lower pole stone measuring 5.4 mm, unchanged. Otherwise unremarkable. No ureteral stone or hydronephrosis. Left Kidney/Ureter: No stones, hydronephrosis, or hydroureter. No perinephric fat stranding. Other Solid Organs: Noncontrast images of the solid organs are grossly unremarkable. Gallbladder/Bile Ducts: Surgically absent. No ductal dilation. Peritoneal Cavity: No free fluid, free air or nixon adenopathy. Bowel is grossly unremarkable. Normal appendix. Pelvic Organs: Unremarkable urinary bladder. Absent uterus. Vasculature: Unremarkable. Other: Tiny left inguinal hernia with fat involvement only. IMPRESSION: Nonobstructing right renal stone measuring 5.4 mm, unchanged. Otherwise unremarkable. RADIA
[2018-05-19] MEDS ORDERED: oxyCODONE 5 MG TABLET PO STA (17:45)
--- NOTE | 2018-05-19 17:53 | ED Physician Documentation ---
History of Present Illness - Stated complaint Stated Complaint: LOWER R SIDE BACK PX/VOMITING - Chief complaint Chief Complaint: Abd Pain - History obtained from History obtained from: Patient - History of Present Illness Timing: How many weeks ago (2) Pain level max: 8 Pain level now: 8 Quality: sharp Radiates to: no Improved by: Percocet, phenergan Worsened by: nothing Associated symptoms: nausea - Additonal information Additional information: 53-year-old female with history of high cholesterol and resolved hypertension here with complaint of right flank pain the past 2 weeks associated with nausea. Patient stated was had a CAT scan done here in the emergency room May 06 which showed a 6 mm right kidney stone. Patient was discharged on naproxen and Zofran. Patient claims she is allergic to NSAIDs. She went to see her in primary doctor and she was prescribed Phenergan and Percocet.Patient stated she ran out of Percocet and Phenergan and so her pain is strong again. Review of Systems Ten Systems: 10 systems reviewed and negative Constitutional: denies: Fever Cardiac: denies: Chest pain / pressure GI: reports: Nausea. 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 /SUPERVISOR COATING: Hysterectomy HEENT: Tonsil/Adenoidectomy - Present Medications Home Medications: Ambulatory Orders Medication Instructions Recorded Confirmed Gabapentin 1,800 mg PO DAILY 02/09/15 04/08/17 Cetirizine [ZyrTEC] 10 mg PO DAILY 11/23/16 04/08/17 Gemfibrozil [Lopid] 600 mg PO DAILY 11/23/16 04/08/17 Omeprazole 40 mg PO DAILY 11/23/16 04/08/17 LORazepam [Ativan] 1 mg PO ONCE 04/27/18 Vortioxetine Hydrobromide 04/27/18 [Trintellix] Naproxen 500 mg PO BID PRN #60 tablet 05/06/18 Oxycodone HCl/Acetaminophen 1 - 2 each PO Q6H PRN #14 tablet 05/19/18 [Percocet 5-325 mg Tablet] Promethazine [Phenergan] 25 mg PO Q6H PRN #10 tab 05/19/18 - Allergies Allergies/Adverse Reactions: Allergies Allergy/AdvReac Type Severity Reaction Status Date / Time amoxicillin trihydrate * Allergy Rash Verified 05/19/18 12:27 [From Augmentin] diphenhydramine HCl * Allergy Respiratory Verified 05/19/18 12:27 [From Benadryl] hydrocodone Allergy Itching Verified 05/19/18 12:28 morphine Allergy Rash Verified 05/19/18 12:27 NSAIDS (Non-Steroidal Allergy Unknown Verified 05/19/18 14:24 Anti-Inflamma potassium clavulanate * Allergy Rash Verified 05/19/18 12:27 [From Augmentin] aspirin AdvReac Unknown Unknown Verified 05/19/18 12:27 cephalexin monohydrate * AdvReac Unknown Rash Verified 05/19/18 12:27 [From Keflex] erythromycin base AdvReac Unknown Rash Verified 05/19/18 12:27 [Erythromycin Base] Sulfa (Sulfonamide AdvReac Unknown Rash Verified 05/19/18 12:27 Antibiotics) bees AdvReac Unknown Emesis Uncoded 05/19/18 12:27 - Social History Does the pt smoke?: Yes Smoking Status: Current every day smoker Does the pt drink ETOH?: No Does the pt have substance abuse?: Yes Substance Use and Type: Marijuana - Immunizations Immunizations are current?: Yes - POLST Patient has POLST: No PD ED PE NORMAL - Vitals Vital signs reviewed: Yes - General General: Alert and oriented X 3, No acute distress, Well developed/nourished - HEENT HEENT: Moist mucous membranes - Neck Neck: Supple, no meningeal sign - Cardiac Cardiac: RRR, No murmur - Respiratory Respiratory: No respiratory distress, Clear bilaterally - Abdomen Abdomen: Normal bowel sounds, Soft, Non tender, Non distended - Back Back: Other (Positive mild right CVAT with percussion). No: No spinal TTP - Derm Derm: Normal color, Warm and dry, No rash - Extremities Extremities: No deformity - Neuro Neuro: Alert and oriented X 3 - Psych Psych: Normal mood, Normal affect Results - Vitals Vitals: Vital Signs - 24 hr 05/19/18 12:25 Temperature 36.4 C L Heart Rate 98 Respiratory 16 Rate Blood Pressure 120/80 O2 Saturation 99 Oxygen O2 Source Room air - Labs Labs: Laboratory Tests 05/19/18 05/19/18 05/19/18 12:29 12:41 12:42 WBC 7.4 RBC 4.17 L Hgb 12.6 Hct 36.6 L MCV 87.7 MCH 30.1 MCHC 34.4 RDW 12.8 Plt Count 245 MPV 7.8 L Neut # (Auto) 3.4 Lymph # (Auto) 3.1 Foster # (Auto) 0.6 Eos # (Auto) 0.2 Baso # (Auto) 0.0 Absolute Nucleated RBC 0.01 Nucleated RBC % 0.1 Sodium 139 Potassium 3.7 Chloride 106 Carbon Dioxide 27 Anion Gap 6.0 BUN 11 Creatinine 0.7 Estimated GFR (MDRD) 88 L Glucose 102 H Calcium 9.1 Total Bilirubin 0.3 AST 25 ALT 24 Alkaline Phosphatase 61 Total Protein 8.1 Albumin 4.3 Globulin 3.8 Albumin/Globulin Ratio 1.1 Lipase 43 Urine Color Urine Clarity Urine pH Ur Specific [place] 1.020 Urine Protein Urine Glucose (UA) Urine Ketones Urine Occult Blood Urine Nitrite Urine Bilirubin Urine Urobilinogen Ur Leukocyte Esterase Ur Microscopic Review Urine Culture Comments Urine HCG, Qual NEGATIVE 05/19/18 Unknown WBC RBC Hgb Hct MCV MCH MCHC RDW Plt Count MPV Neut # (Auto) Lymph # (Auto) Foster # (Auto) Eos # (Auto) Baso # (Auto) Absolute Nucleated RBC Nucleated RBC % Sodium Potassium Chloride Carbon Dioxide Anion Gap BUN Creatinine Estimated GFR (MDRD) Glucose Calcium Total Bilirubin AST ALT Alkaline Phosphatase Total Protein Albumin Globulin Albumin/Globulin Ratio Lipase Urine Color YELLOW Urine Clarity CLEAR Urine pH 6.0 Ur Specific [place] 1.020 Urine Protein NEGATIVE Urine Glucose (UA) NEGATIVE Urine Ketones NEGATIVE Urine Occult Blood NEGATIVE Urine Nitrite NEGATIVE Urine Bilirubin NEGATIVE Urine Urobilinogen 0.2 (NORMAL) Ur Leukocyte Esterase NEGATIVE Ur Microscopic Review NOT INDICATED Urine Culture Comments NOT INDICATED Urine HCG, Qual PD MEDICAL DECISION MAKING - ED course Complexity details: reviewed old records, reviewed results, re-evaluated patient, considered differential (Kidney stone, pyelonephritis, UTI), d/w patient ED course: 7 patient form of labs and review of chart. She agreed to another CT scan because she feels that it is worse in her stone may ring. We will give Dilaudid and Zofran. [address] scan results. stated she still has some discomfort but would like to go home on Percocet and Phenergan. Will refer to a urologist. Instructed to follow-up with her primary doctor.Patient claims she has been drinking a lot of water. Departure - Departure Disposition: Home, Self Care Clinical Impression: Renal colic, Kidney stone Condition: Stable Instructions: ED Stone Renal W Colic Follow-Up: Татьяна Riley MD [Physician No Access] - Prescriptions: Oxycodone HCl/Acetaminophen [Percocet 5-325 mg Tablet] 1 - 2 each PO Q6H PRN #14 tablet PRN Reason: pain Promethazine [Phenergan] 25 mg PO Q6H PRN #10 tab PRN Reason: Nausea / Vomiting Comments: Maintain safety while taking pain medication and antiemetic medication. Drink lots of water. Eat high fiber foods. Call the [place] [facility] group (Dr. Riley)For appointment. Call your primary doctor tomorrow and get a referral to a urologist. If worse return to the emergency room.
[2018-05-19 18:21] VITALS: BP 135/89
== END 2018-05-19 18:23 | disposition home or self-care (01) ==
LOC: ED 12:05
DX: N20.0 Calculus of kidney (principal); E78.00 Pure hypercholesterolemia, unspecified; Z86.79 Personal history of other diseases of the circulatory system; F17.200 Nicotine dependence, unspecified, uncomplicated
CPT/HCPCS: 36415; 74176; 80053; 81003; 81025; 83690; 85025; 96361; 96374; 96376; 99283; 99284; A9270; J1170; 81001; 87086

== ENCOUNTER 2018-07-02 18:27 | Emergency (ER) | payer MEDICAID ==
[2018-07-02 18:38] VITALS: BP 122/77
[2018-07-02 19:04] LABS: BILIRUBIN,URINE NEGATIVE (NEGATIVE); GLUCOSE, URINE (UA) NEGATIVE (NEGATIVE); KETONES,URINE (UA) NEGATIVE (NEGATIVE); LEUKOCYTE ESTERASE, URINE MODERATE (NEGATIVE); NITRITE,URINE NEGATIVE (NEGATIVE); OCCULT BLOOD,URINE NEGATIVE (NEGATIVE); PH,URINE 6.5 PH (5.0-7.5); PROTEIN,URINE NEGATIVE (NEGATIVE); UROBILINOGEN,URINE 0.2 (NORMAL) E.U./dL (NORMAL)
[2018-07-02 19:07] LABS: CLARITY,URINE CLEAR (CLEAR)
[2018-07-02] MEDS ORDERED: ONDANSETRON ODT 4 MG TABLET TL STA (19:16)
[2018-07-02] MEDS ORDERED: NITROFURANTOIN MACRO 100 MG CAPSULE PO STA (19:16)
--- NOTE | 2018-07-02 19:18 | ED Physician Documentation ---
PD HPI FEMALE - Stated complaint Stated Complaint: FEMALE - Chief complaint Chief Complaint: UTI - History obtained from History obtained from: Patient - History of Present Illness Timing - onset: Yesterday Timing - duration: Days (2) Timing - details: Gradual onset Pain level max: 3 Pain level max: 2 Associated symptoms: Dysuria, Urinary frequency. No: Fever, Chest/shoulder pain, Abdominal pain, Back pain, Pelvic pain, Vaginal pain, Vaginal bleeding, Vaginal discharge, Genital sore/lesion, Hematuria Similar symptoms before: Diagnosis (UTI) Recently seen: Not recently seen Review of Systems Constitutional: denies: Fever GI: reports: Nausea. denies: Abdominal Pain, Vomiting Musculoskeletal: denies: Back pain PD PAST MEDICAL HISTORY - Past Medical History Past Medical History: Yes Cardiovascular: Hypertension, High cholesterol Respiratory: None Neuro: None Endocrine/Autoimmune: None GI: GERD MANUAL TESTER: None : Kidney stones, Other HEENT: None Psych: Anxiety, Panic attacks Musculoskeletal: None Derm: None - Past Surgical History Past Surgical History: Yes General: Cholecystectomy /MANUAL TESTER: Hysterectomy HEENT: Tonsil/Adenoidectomy - Present Medications Home Medications: Ambulatory Orders Medication Instructions Recorded Confirmed Gabapentin 1,800 mg PO DAILY 02/09/15 04/08/17 Cetirizine [ZyrTEC] 10 mg PO DAILY 11/23/16 04/08/17 Gemfibrozil [Lopid] 600 mg PO DAILY 11/23/16 04/08/17 Omeprazole 40 mg PO DAILY 11/23/16 04/08/17 LORazepam [Ativan] 1 mg PO ONCE 04/27/18 Vortioxetine Hydrobromide 04/27/18 [Trintellix] Naproxen 500 mg PO BID PRN #60 tablet 05/06/18 Oxycodone HCl/Acetaminophen 1 - 2 each PO Q6H PRN #14 tablet 05/19/18 [Percocet 5-325 mg Tablet] Promethazine [Phenergan] 25 mg PO Q6H PRN #10 tab 05/19/18 Oxycodone HCl/Acetaminophen 1 - 2 each PO Q6H PRN #14 tablet 05/28/18 [Percocet 5-325 mg Tablet] Promethazine [Phenergan] 25 mg PO Q6H PRN #10 tab 05/28/18 Nitrofurantoin Monohyd/M-Cryst 100 mg PO BID #10 capsule 07/02/18 [Macrobid 100 mg Capsule] Phenazopyridine HCl [Pyridium] 200 mg PO TID PRN #6 tablet 07/02/18 - Allergies Allergies/Adverse Reactions: Allergies Allergy/AdvReac Type Severity Reaction Status Date / Time amoxicillin trihydrate * Allergy Rash Verified 05/19/18 12:27 [From Augmentin] diphenhydramine HCl * Allergy Respiratory Verified 05/19/18 12:27 [From Benadryl] hydrocodone Allergy Itching Verified 05/19/18 12:28 morphine Allergy Rash Verified 05/19/18 12:27 NSAIDS (Non-Steroidal Allergy Unknown Verified 05/19/18 14:24 Anti-Inflamma potassium clavulanate * Allergy Rash Verified 05/19/18 12:27 [From Augmentin] aspirin AdvReac Unknown Unknown Verified 05/19/18 12:27 cephalexin monohydrate * AdvReac Unknown Rash Verified 05/19/18 12:27 [From Keflex] erythromycin base AdvReac Unknown Rash Verified 05/19/18 12:27 [Erythromycin Base] Sulfa (Sulfonamide AdvReac Unknown Rash Verified 05/19/18 12:27 Antibiotics) bees AdvReac Unknown Emesis Uncoded 05/19/18 12:27 - Social History Does the pt smoke?: Yes Smoking Status: Current every day smoker Does the pt drink ETOH?: No Does the pt have substance abuse?: No - Immunizations Immunizations are current?: Yes - POLST Patient has POLST: No PD ED PE NORMAL - Vitals Vital signs reviewed: Yes - General General: Alert and oriented X 3, No acute distress - HEENT HEENT: Moist mucous membranes - Cardiac Cardiac: RRR - Respiratory Respiratory: No respiratory distress, Clear bilaterally - Abdomen Abdomen: Soft, Non tender, Non distended - Back Back: No CVA TTP, No spinal TTP - Derm Derm: Warm and dry - Neuro Neuro: Alert and oriented X 3 Results - Vitals Vitals: Vital Signs - 24 hr 07/02/18 18:31 Temperature 36.1 C L Heart Rate 107 H Respiratory 18 Rate Blood Pressure 122/77 O2 Saturation 99 Oxygen O2 Source Room air - Labs Labs: Laboratory Tests 07/02/18 18:52 Urine Color YELLOW Urine Clarity CLEAR Urine pH 6.5 Ur Specific [place] 1.015 Urine Protein NEGATIVE Urine Glucose (UA) NEGATIVE Urine Ketones NEGATIVE Urine Occult Blood NEGATIVE Urine Nitrite NEGATIVE Urine Bilirubin NEGATIVE Urine Urobilinogen 0.2 (NORMAL) Ur Leukocyte Esterase MODERATE H Urine RBC None Seen Urine WBC 6-10 H Ur Squamous Epith Cells RARE Squamous Urine Bacteria None Seen Ur Microscopic Review INDICATED Urine Culture Comments INDICATED PD MEDICAL DECISION MAKING - ED course Complexity details: considered differential, d/w patient ED course: 53-year-old female with what appears to be a UTI. Will treat with antibiotics. No abdominal tenderness. No evidence of appendicitis, ureteral stone etc. Patient is well-appearing, nontoxic. Afebrile. Will return if she worsens. Patient counseled regarding signs and symptoms for which I believe and urgent re-evaluation would be necessary. Patient with good understanding of and agreement to plan and is comfortable going home at this time This document was made in part using voice recognition software. While efforts are made to proofread this document, sound alike and grammatical errors may occur. Departure - Departure Disposition: 01 Home, Self Care Clinical Impression: Urinary tract infection Qualifiers: Urinary tract infection type: acute cystitis Hematuria presence: without hematuria Qualified Code(s): N30.00 - Acute cystitis without hematuria Condition: Good Instructions: ED UTI Cystitis Female Follow-Up: Loan Gilbert DNP [Primary Care Provider] - Within 1 week Prescriptions: Nitrofurantoin Monohyd/M-Cryst [Macrobid 100 mg Capsule] 100 mg PO BID #10 capsule Phenazopyridine HCl [Pyridium] 200 mg PO TID PRN #6 tablet PRN Reason: dysuria Comments: Take all antibiotics until gone. Return if you worsen. Discharge Date/Time: 07/02/18 19:32
[2018-07-02 19:33] LABS: BACTERIA,URINE None Seen /HPF (None Seen); RBC,URINE None Seen /HPF (0-5); SQUAMOUS EPITHELIAL CELL,UR RARE Squamous (<= Few)
== END 2018-07-02 19:32 | disposition home or self-care (01) ==
LOC: ED 18:27
DX: N30.00 Acute cystitis without hematuria (principal); I10 Essential (primary) hypertension; E78.00 Pure hypercholesterolemia, unspecified; F17.200 Nicotine dependence, unspecified, uncomplicated
CPT/HCPCS: 81001; 87086; 99283; A9270; Q0162; 81003

== ENCOUNTER 2018-07-15 15:32 | Emergency (ER) | payer MEDICAID ==
[2018-07-15 16:29] LABS: BILIRUBIN,URINE NEGATIVE (NEGATIVE); GLUCOSE, URINE (UA) NEGATIVE (NEGATIVE); KETONES,URINE (UA) NEGATIVE (NEGATIVE); LEUKOCYTE ESTERASE, URINE LARGE (NEGATIVE); NITRITE,URINE NEGATIVE (NEGATIVE); OCCULT BLOOD,URINE NEGATIVE (NEGATIVE); PROTEIN,URINE NEGATIVE (NEGATIVE); UROBILINOGEN,URINE 0.2 (NORMAL) E.U./dL (NORMAL)
[2018-07-15 16:38] LABS: BACTERIA,URINE None Seen /HPF (None Seen); CLARITY,URINE CLEAR (CLEAR); RBC,URINE 0-5 /HPF (0-5); SQUAMOUS EPITHELIAL CELL,UR RARE Squamous (<= Few)
[2018-07-15] MEDS ORDERED: ONDANSETRON ODT 4 MG TABLET TL STA (17:36)
[2018-07-15] MEDS ORDERED: HYDROmorphone 1 MG/ML CARPUJECT IM STA ×2 (17:36→18:50)
[2018-07-15 18:21] VITALS: BP 112/76
--- NOTE | 2018-07-15 18:36 | CT Report ---
Reason: right abd/flank pain for 2 weeks Procedure Date: 07/15/2018 Accession Number: [id number] / [id number] Procedure: CT - KUB CPT Code: FULL RESULT: EXAM: CT ABDOMEN AND PELVIS (CT KUB) EXAM DATE: 07/15/2018 06:03 PM. CLINICAL HISTORY: Right abd/flank pain for 2 weeks. COMPARISONS: ABDOMEN/PELVIS W/O 05/19/2018 4:46 PM. TECHNIQUE: Routine axial helical CT imaging was performed through the abdomen and pelvis without IV contrast. Reconstructions: Coronal and sagittal. In accordance with CT protocol optimization, one or more of the following dose reduction techniques were utilized for this exam: automated exposure control, adjustment of mA and/or KV based on patient size, or use of iterative reconstructive technique. FINDINGS: Lung Bases: Redemonstrated small scattered pulmonary cysts bilaterally. Focal groundglass opacity in the lingula may represent scarring or atelectasis. Unchanged 5 mm subpleural nodule in the anterior right middle lobe (image 17 of series 3). Right Kidney/Ureter: Unchanged nonobstructing stone in the lower pole of the right kidney measuring 7 x 4 mm. No hydronephrosis or perinephric fat stranding. Left Kidney/Ureter: No stones, hydronephrosis, or hydroureter. No perinephric fat stranding. Other Solid Organs: Noncontrast images of the solid organs are grossly unremarkable. Gallbladder/Bile Ducts: The gallbladder is surgically absent. Peritoneal Cavity: Nonobstructive bowel gas pattern. The appendix is normal. No free air or free fluid. Pelvic Organs: The uterus is surgically absent. The ovaries appear unremarkable. The urinary bladder is unremarkable. Vasculature: Scattered calcified atherosclerotic plaques in the abdominal aorta and iliac arteries without evidence of aneurysm. Other: Degenerative disk disease at L5-S1. IMPRESSION: Unchanged nonobstructing right renal nephrolithiasis. No new nephrolithiasis or hydronephrosis. Nonobstructive bowel gas pattern. Normal appendix. RADIA
--- NOTE | 2018-07-15 18:56 | ED Physician Documentation ---
PD HPI ABD PAIN - Stated complaint Stated Complaint: FEMALE - Chief complaint Chief Complaint: Abd Pain - History obtained from History obtained from: Patient - History of Present Illness Timing - onset: How many weeks ago (several weeks of right lower pain and dysuria. Seen and Rx for UTI couple weeks ago and did not improve. Has had recurrent lower abd pain for some time without diagnosis.) Timing - duration: Weeks Timing - details: Gradual onset, Still present, Waxing and waning Quality: Cramping, Aching, Pain Location: RLQ, Suprapubic Radiation: Right flank Improved by: No: Eating Worsened by: No: Eating Associated symptoms: Nausea, Vomiting, Dysuria, Vaginal dc (she says she has noted some discharge vaginally that is clear and not itchy.). No: Fever, Hematemesis Similar symptoms before: Has not had sx before Recently seen: Emergency Dept Review of Systems Constitutional: reports: Chills, Myalgias. denies: Fever Nose: denies: Rhinorrhea / runny nose, Congestion Throat: denies: Sore throat Cardiac: denies: Chest pain / pressure Respiratory: denies: Cough GI: reports: Abdominal Pain, Nausea. denies: Vomiting, Diarrhea : reports: Dysuria, Frequency, Discharge. 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: Hysterectomy HEENT: Tonsil/Adenoidectomy - Present Medications Home Medications: Ambulatory Orders Medication Instructions Recorded Confirmed Gabapentin 1,800 mg PO DAILY 02/09/15 04/08/17 Cetirizine [ZyrTEC] 10 mg PO DAILY 11/23/16 04/08/17 Gemfibrozil [Lopid] 600 mg PO DAILY 11/23/16 04/08/17 Omeprazole 40 mg PO DAILY 11/23/16 04/08/17 LORazepam [Ativan] 1 mg PO ONCE 04/27/18 Vortioxetine Hydrobromide 04/27/18 [Trintellix] Naproxen 500 mg PO BID PRN #60 tablet 05/06/18 Oxycodone HCl/Acetaminophen 1 - 2 each PO Q6H PRN #14 tablet 05/19/18 [Percocet 5-325 mg Tablet] Promethazine [Phenergan] 25 mg PO Q6H PRN #10 tab 05/19/18 Oxycodone HCl/Acetaminophen 1 - 2 each PO Q6H PRN #14 tablet 05/28/18 [Percocet 5-325 mg Tablet] Promethazine [Phenergan] 25 mg PO Q6H PRN #10 tab 05/28/18 Nitrofurantoin Monohyd/M-Cryst 100 mg PO BID #10 capsule 07/02/18 [Macrobid 100 mg Capsule] Phenazopyridine HCl [Pyridium] 200 mg PO TID PRN #6 tablet 07/02/18 Metronidazole [Flagyl] 500 mg PO BID #14 tablet 07/15/18 Ondansetron Odt [Zofran] 4 mg TL Q6H PRN #10 tablet 07/15/18 Oxycodone HCl/Acetaminophen 1 - 2 each PO Q6H PRN #18 tablet 07/15/18 [Percocet 5-325 mg Tablet] - Allergies Allergies/Adverse Reactions: Allergies Allergy/AdvReac Type Severity Reaction Status Date / Time amoxicillin trihydrate * Allergy Rash Verified 07/15/18 15:43 [From Augmentin] diphenhydramine HCl * Allergy Respiratory Verified 07/15/18 15:43 [From Benadryl] hydrocodone Allergy Itching Verified 07/15/18 15:43 morphine Allergy Rash Verified 07/15/18 15:43 NSAIDS (Non-Steroidal Allergy Unknown Verified 07/15/18 15:43 Anti-Inflamma potassium clavulanate * Allergy Rash Verified 07/15/18 15:43 [From Augmentin] aspirin AdvReac Unknown Unknown Verified 07/15/18 15:43 cephalexin monohydrate * AdvReac Unknown Rash Verified 07/15/18 15:43 [From Keflex] erythromycin base AdvReac Unknown Rash Verified 07/15/18 15:43 [Erythromycin Base] Sulfa (Sulfonamide AdvReac Unknown Rash Verified 07/15/18 15:43 Antibiotics) bees AdvReac Unknown Emesis Uncoded 07/15/18 15:43 - Social History Does the pt smoke?: Yes Smoking Status: Current every day smoker Does the pt drink ETOH?: No Does the pt have substance abuse?: No - Immunizations Immunizations are current?: Yes - POLST Patient has POLST: No PD ED PE NORMAL - Vitals Vital signs reviewed: Yes - General General: Alert and oriented X 3, No acute distress, Well developed/nourished - HEENT HEENT: Ears normal, Moist mucous membranes, Pharynx benign - Neck Neck: Supple, no meningeal sign, No adenopathy - Cardiac Cardiac: RRR, No murmur - Respiratory Respiratory: Clear bilaterally - Abdomen Abdomen: Normal bowel sounds, Soft, Non distended, No organomegaly, Other (tender suprapubic area and right low abd to palpation but not percussion. ) - Back Back: Other (some right CVA tenderness to percussion. ) - Derm Derm: Normal color, Warm and dry, No rash - Extremities Extremities: No tenderness to palpate, Normal ROM s pain, No edema, No calf tenderness / cord - Neuro Neuro: Alert and oriented X 3, No motor deficit, Normal speech Results - Vitals Vitals: Vital Signs - 24 hr 07/15/18 07/15/18 07/15/18 15:41 15:42 18:20 Temperature 36.4 C L 36.1 C L Heart Rate 107 H 98 99 Respiratory 18 16 16 Rate Blood Pressure 130/76 115/76 112/76 O2 Saturation 96 99 97 Oxygen O2 Source Room air - Labs Labs: Laboratory Tests 07/15/18 16:18 Urine Color YELLOW Urine Clarity CLEAR Urine pH 6.0 Ur Specific [place] 1.025 Urine Protein NEGATIVE Urine Glucose (UA) NEGATIVE Urine Ketones NEGATIVE Urine Occult Blood NEGATIVE Urine Nitrite NEGATIVE Urine Bilirubin NEGATIVE Urine Urobilinogen 0.2 (NORMAL) Ur Leukocyte Esterase LARGE H Urine RBC 0-5 Urine WBC 6-10 H Ur Squamous Epith Cells RARE Squamous Urine Bacteria None Seen Ur Microscopic Review INDICATED Urine Culture Comments INDICATED - Rads (name of study) KUB CT Radiology: Prelim report reviewed (still 5 mm stone in right kidney. NO ureteral stones. Appendix normal. No other acute process. ) PD MEDICAL DECISION MAKING - ED course Complexity details: considered differential (CT normal. She has dysuria still and did not respond to abx for UTI. Her urine culture did not grow out bacterial cause. ), d/w patient Departure - Departure Disposition: 01 Home, Self Care Clinical Impression: Dysuria Abdominal pain Qualifiers: Abdominal location: right lower quadrant Qualified Code(s): R10.31 - Right lower quadrant pain Vaginitis Qualifiers: Chronicity: acute Qualified Code(s): N76.0 - Acute vaginitis Condition: Stable Record reviewed to determine appropriate education?: Yes Instructions: ED Vaginosis Bacterial Follow-Up: Loan Gilbert DNP [Primary Care Provider] - Prescriptions: Metronidazole [Flagyl] 500 mg PO BID #14 tablet Ondansetron Odt [Zofran] 4 mg TL Q6H PRN #10 tablet PRN Reason: Nausea / Vomiting Oxycodone HCl/Acetaminophen [Percocet 5-325 mg Tablet] 1 - 2 each PO Q6H PRN #18 tablet PRN Reason: pain Comments: Your CT scan did not show any obvious cause for the pain. He have the same stone up in the kidney but it is not causing swelling and there is no stones in the ureter. Your appendix appears normal. There is no obvious cysts or tumors. Given your discomfort urinating along with this stated us vaginal discharge, I am assuming its a vaginitis which is a slightly different infection than a urinary tract infection. Your urine test here appears normal so not just a bladder infection. We will treat your symptoms with metronidazole antibiotic twice daily for a week. You can add ondansetron if needed for nausea. Percocet if needed for pain. Recheck with your primary care if not improving over the next several days. Discharge Date/Time: 07/15/18 19:09
== END 2018-07-15 19:09 | disposition home or self-care (01) ==
LOC: ED 15:32
DX: R30.0 Dysuria (principal); R10.31 Right lower quadrant pain; N76.0 Acute vaginitis; F17.200 Nicotine dependence, unspecified, uncomplicated
CPT/HCPCS: 74176; 81001; 87086; 96372; 99283; J1170; Q0162; 81003

== ENCOUNTER 2018-09-03 10:16 | Outpatient (CLI) | payer MEDICAID ==
[2018-09-03 19:14] LABS: ALBUMIN/GLOBULIN RATIO 1.3 (1.0-2.2); ALKALINE PHOSPHATASE 53 IU/L (42-121); ALT ALANINE AMINOTRANSFERASE 27 IU/L (10-60); AST ASPARTATE AMINOTRANSFERASE 25 IU/L (10-42); BILIRUBIN,TOTAL 0.5 mg/dL (0.2-1.0); BUN - BLOOD UREA NITROGEN 17 mg/dL (6-20); CARBON DIOXIDE - CO2 24 mmol/L (21-32); CHLORIDE 106 mmol/L (101-111); CHOL/HDL RATIO 5.3 (<4.4); CHOLESTEROL 174 mg/dL; CREATININE 0.7 mg/dL (0.4-1.0); GFR - MDRD 88 (>89); GLUCOSE 105 mg/dL (70-100); HDL CHOLESTEROL 33 mg/dL; LDL CHOLESTEROL,CALCULATED 118 mg/dL; LDL/HDL RATIO 3.6 (<4.4); SODIUM 142 mmol/L (135-145); TOTAL PROTEIN 7.1 g/dL (6.7-8.2); VLDL CHOLESTEROL 23 mg/dL
[2018-09-03 19:24] LABS: THYROID STIMULATING HORMONE 0.76 uIU/mL (0.34-5.60)
[2018-09-03 19:33] LABS: FOLATE 14.76 ng/mL (5.90 - >24.8)
[2018-09-03 19:52] LABS: BASOPHILS # (AUTO) 0.1 10^3/uL (0.0-0.1); BASOPHILS % (AUTO) 0.9 %; EOSINOPHILS # (AUTO) 0.2 10^3/uL (0.0-0.7); EOSINOPHILS % (AUTO) 3.8 %; HGB - HEMOGLOBIN 11.8 g/dL (12.0-16.0); LYMPHOCYTES # (AUTO) 2.4 10^3/uL (1.5-3.5); LYMPHOCYTES % (AUTO) 39.5 %; MEAN CORPUSCULAR HEMOGLOBIN 29.6 pg (27.0-31.0); MEAN CORPUSCULAR HGB CONC 33.3 g/dL (32.0-36.0); MEAN CORPUSCULAR VOLUME 88.9 fL (81.0-99.0); MEAN PLATELET VOLUME 8.9 fL (7.9-10.8); MONOCYTES # (AUTO) 0.5 10^3/uL (0.0-1.0); NEUTROPHILS # (AUTO) 2.8 10^3/uL (1.5-6.6); NEUTROPHILS % (AUTO) 46.8 %; PLT - PLATELET COUNT 227 10^3/uL (130-450); RED BLOOD COUNT 3.98 10^6/uL (4.20-5.40); RED CELL DISTRIBUTION WIDTH 13.2 % (12.0-15.0)
== END 2018-09-03 10:17 | disposition home or self-care (01) ==
LOC: LAB.N 10:16
PROVIDERS: ATTEND Nurse Practitioner
DX: E78.2 Mixed hyperlipidemia (principal); E55.9 Vitamin D deficiency, unspecified; R53.83 Other fatigue
CPT/HCPCS: 36415; 80053; 80061; 82306; 82607; 82746; 83721; 84443; 85025

== ENCOUNTER 2018-09-04 20:32 | Emergency (ER) | payer MEDICAID ==
--- NOTE | 2018-09-04 20:57 | ED Physician Documentation ---
History of Present Illness - Stated complaint Stated Complaint: RT SHOULDER PX - Chief complaint Chief Complaint: Ext Problem - History obtained from History obtained from: Patient - History of Present Illness Timing: Today Pain level now: 8 Improved by: rest Worsened by: movement (involving RUE) - Additonal information Additional information: has had mild right eji-kysri-ubaww RUE pain x few months. earlier today, she was pushing herself up off the floor and had sudden onset right shoulder and proximal humeral pain associated with "pop" and "crunching" sounds. Pain is distinctly worse with any movement Review of Systems Cardiac: denies: Chest pain / pressure Musculoskeletal: reports: Joint pain. 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: None : Kidney stones, Other HEENT: None Psych: Anxiety, Panic attacks Musculoskeletal: None Derm: None - Past Surgical History Past Surgical History: Yes General: Cholecystectomy /BARN MANAGER: Hysterectomy HEENT: Tonsil/Adenoidectomy - Present Medications Home Medications: Ambulatory Orders Medication Instructions Recorded Confirmed Gabapentin 1,800 mg PO DAILY 02/09/15 04/08/17 Cetirizine [ZyrTEC] 10 mg PO DAILY 11/23/16 04/08/17 Gemfibrozil [Lopid] 600 mg PO DAILY 11/23/16 04/08/17 Omeprazole 40 mg PO DAILY 11/23/16 04/08/17 LORazepam [Ativan] 1 mg PO ONCE 04/27/18 Vortioxetine Hydrobromide 04/27/18 [Trintellix] Naproxen 500 mg PO BID PRN #60 tablet 05/06/18 Oxycodone HCl/Acetaminophen 1 - 2 each PO Q6H PRN #14 tablet 05/19/18 [Percocet 5-325 mg Tablet] Promethazine [Phenergan] 25 mg PO Q6H PRN #10 tab 05/19/18 Oxycodone HCl/Acetaminophen 1 - 2 each PO Q6H PRN #14 tablet 05/28/18 [Percocet 5-325 mg Tablet] Promethazine [Phenergan] 25 mg PO Q6H PRN #10 tab 05/28/18 Nitrofurantoin Monohyd/M-Cryst 100 mg PO BID #10 capsule 07/02/18 [Macrobid 100 mg Capsule] Phenazopyridine HCl [Pyridium] 200 mg PO TID PRN #6 tablet 07/02/18 Metronidazole [Flagyl] 500 mg PO BID #14 tablet 07/15/18 Ondansetron Odt [Zofran] 4 mg TL Q6H PRN #10 tablet 07/15/18 Oxycodone HCl/Acetaminophen 1 - 2 each PO Q6H PRN #18 tablet 07/15/18 [Percocet 5-325 mg Tablet] Oxycodone HCl/Acetaminophen 1 - 2 each PO Q6H PRN #14 tablet 09/04/18 [Percocet 5-325 mg Tablet] - Allergies Allergies/Adverse Reactions: Allergies Allergy/AdvReac Type Severity Reaction Status Date / Time amoxicillin trihydrate * Allergy Rash Verified 09/04/18 20:47 [From Augmentin] diphenhydramine HCl * Allergy Respiratory Verified 09/04/18 20:47 [From Benadryl] hydrocodone Allergy Itching Verified 09/04/18 20:47 morphine Allergy Rash Verified 09/04/18 20:47 NSAIDS (Non-Steroidal Allergy Unknown Verified 09/04/18 20:47 Anti-Inflamma potassium clavulanate * Allergy Rash Verified 09/04/18 20:47 [From Augmentin] aspirin AdvReac Unknown Unknown Verified 09/04/18 20:47 cephalexin monohydrate * AdvReac Unknown Rash Verified 09/04/18 20:47 [From Keflex] erythromycin base AdvReac Unknown Rash Verified 09/04/18 20:47 [Erythromycin Base] Sulfa (Sulfonamide AdvReac Unknown Rash Verified 09/04/18 20:47 Antibiotics) bees AdvReac Unknown Emesis Uncoded 09/04/18 20:47 - Social History Does the pt smoke?: Yes Smoking Status: Current every day smoker Does the pt drink ETOH?: No Does the pt have substance abuse?: No - Immunizations Immunizations are current?: Yes - POLST Patient has POLST: No PD ED PE NORMAL - Vitals Vital signs reviewed: Yes - General General: Alert and oriented X 3, No acute distress (NAD at rest, appears to have painful distress with movement involving RUE (at shoulder)), Well developed/nourished - Respiratory Respiratory: No respiratory distress, Clear bilaterally - Back Back: No spinal TTP - Extremities Extremities: No edema - Neuro Neuro: No motor deficit, No sensory deficit PD ED PE EXPANDED - Extremities Extremities: Tenderness (tenderness anterolateral aspect of right shoulder without specific bony tenderness. There is significant limitation in ROM right shoulder (cannot rotate, flex, extend, or abduct due to pain). LTS intact in right fingertips with brisk capillary refill, strong raidal pulse. No deformity of right shoulder nor bicep), Limited ROM, Right shoulder. No: Swelling, Bruising Results - Vitals Vitals: Vital Signs - 24 hr 09/04/18 09/04/18 20:40 21:49 Temperature 36.8 C 36.9 C Heart Rate 106 H 101 H Respiratory 16 12 Rate Blood Pressure 148/91 H 140/93 H O2 Saturation 99 97 Oxygen O2 Source Room air PD MEDICAL DECISION MAKING - ED course Complexity details: considered differential, d/w patient Departure - Departure Disposition: 01 Home, Self Care Clinical Impression: Shoulder sprain Condition: Good Instructions: ED Sprain Shoulder, ED Sling Follow-Up: Loan Gilbert DNP [Primary Care Provider] - Prescriptions: Oxycodone HCl/Acetaminophen [Percocet 5-325 mg Tablet] 1 - 2 each PO Q6H PRN #14 tablet PRN Reason: pain Discharge Date/Time: 09/04/18 21:51
[2018-09-04] MEDS ORDERED: oxyCODONE/ACET 5/325 Prepack 4 PO STA (21:27)
[2018-09-04 21:50] VITALS: BP 140/93
== END 2018-09-04 21:51 | disposition home or self-care (01) ==
LOC: ED 20:32
DX: S43.491A Other sprain of right shoulder joint, initial encounter (principal); X50.1XXA Overexertion from prolonged static or awkward postures, initial encounter; I10 Essential (primary) hypertension; E78.00 Pure hypercholesterolemia, unspecified; F17.200 Nicotine dependence, unspecified, uncomplicated
CPT/HCPCS: 99283

== ENCOUNTER 2018-09-27 15:25 | Outpatient (CLI) | payer MEDICAID ==
--- NOTE | 2018-09-29 12:56 | MRI Report ---
Reason: LEFT OBTURATOR NEUROPATHY Procedure Date: 09/27/2018 Accession Number: [id number] / [id number] Procedure: MRI - Pelvis W/O CPT Code: FULL RESULT: EXAM: MRI PELVIS WITHOUT CONTRAST EXAM DATE: 09/27/2018 04:09 PM. CLINICAL HISTORY: Left obturator neuropathy. COMPARISON: CT 07/15/2018, radiograph 09/09/2017. TECHNIQUE: Multiplanar, multisequence T1-weighted and fluid-sensitive sequences of the pelvis without contrast. Other: None. FINDINGS: Bones: No fractures. There is periarticular marrow edema in the right parasymphyseal pubic bone. Lower Lumbar Spine: Severe degenerative disk changes at L5-S1. A central posterior disk protrusion causes mild bilateral foraminal narrowing. Sacroiliac Joints: No effusion or sacroiliitis. Right Hip: No acetabular retroversion. Femoral head-neck offset is within normal limits. No effusion. Left Hip: No acetabular retroversion. Femoral head-neck offset is within normal limits. No effusion. Symphysis Pubis: Unremarkable. Musculature: Mild edema is in the bilateral gluteus medius tendons. Pelvic Cavity: The patient has had a hysterectomy. The other visualized pelvic organs are unremarkable. Other: The visualized sciatic nerves are unremarkable. No bursitis. The subcutaneous tissues are unremarkable. IMPRESSION: 1. Mild bilateral foraminal narrowing at L5-S1 due to disk protrusion. 2. Mild bilateral gluteus medius tendinosis. RADIA
== END 2018-09-27 15:26 | disposition home or self-care (01) ==
LOC: DI 15:25
PROVIDERS: ATTEND Nurse Practitioner
DX: M51.27 Other intervertebral disc displacement, lumbosacral region (principal); M51.37 Other intervertebral disc degeneration, lumbosacral region; M48.07 Spinal stenosis, lumbosacral region; M67.98 Unspecified disorder of synovium and tendon, other site
CPT/HCPCS: 72195

== ENCOUNTER 2019-04-11 20:31 | Emergency (ER) | payer MEDICAID ==
[2019-04-11 20:44] VITALS: BP 143/84
[2019-04-11 21:00] LABS: BILIRUBIN,URINE NEGATIVE (NEGATIVE); GLUCOSE, URINE (UA) NEGATIVE (NEGATIVE); KETONES,URINE (UA) NEGATIVE (NEGATIVE); LEUKOCYTE ESTERASE, URINE NEGATIVE (NEGATIVE); NITRITE,URINE NEGATIVE (NEGATIVE); OCCULT BLOOD,URINE NEGATIVE (NEGATIVE); PH,URINE 7.5 PH (5.0-7.5); PROTEIN,URINE NEGATIVE (NEGATIVE); UROBILINOGEN,URINE 0.2 (NORMAL) E.U./dL (NORMAL)
[2019-04-11 21:00] LABS: BASOPHILS % (AUTO) 0.4 %; EOSINOPHILS # (AUTO) 0.1 10^3/uL (0.0-0.7); EOSINOPHILS % (AUTO) 1.5 %; HGB - HEMOGLOBIN 12.5 g/dL (12.0-16.0); LYMPHOCYTES # (AUTO) 2.8 10^3/uL (1.5-3.5); LYMPHOCYTES % (AUTO) 33.9 %; MEAN CORPUSCULAR HEMOGLOBIN 29.1 pg (27.0-31.0); MEAN CORPUSCULAR HGB CONC 32.6 g/dL (32.0-36.0); MEAN CORPUSCULAR VOLUME 89.5 fL (81.0-99.0); MEAN PLATELET VOLUME 9.2 fL (7.9-10.8); MONOCYTES # (AUTO) 0.3 10^3/uL (0.0-1.0); MONOCYTES % (AUTO) 3.9 %; NEUTROPHILS % (AUTO) 59.9 %; PLT - PLATELET COUNT 253 10^3/uL (130-450); RED BLOOD COUNT 4.29 10^6/uL (4.20-5.40); RED CELL DISTRIBUTION WIDTH 12.2 % (12.0-15.0); WHITE BLOOD COUNT 8.3 x10^3/uL (4.8-10.8)
[2019-04-11 21:03] LABS: CLARITY,URINE CLEAR (CLEAR)
[2019-04-11 21:13] LABS: ALBUMIN 4.4 g/dL (3.2-5.5); ALBUMIN/GLOBULIN RATIO 1.3 (1.0-2.2); BILIRUBIN,TOTAL 0.7 mg/dL (0.2-1.0); CALCIUM 9.3 mg/dL (8.5-10.3); CREATININE 0.8 mg/dL (0.4-1.0); TOTAL PROTEIN 7.8 g/dL (6.7-8.2)
== END 2019-04-11 22:20 | disposition left against medical advice (07) ==
LOC: ED 20:31
DX: Z53.21 Procedure and treatment not carried out due to patient leaving prior to being seen by health care provider (principal)
CPT/HCPCS: 36415; 80053; 81001; 81003; 83690; 85025; 87086

== ENCOUNTER 2019-04-12 17:17 | Emergency (ER) | payer MEDICAID ==
[2019-04-12] MEDS ORDERED: SODIUM CHLORIDE 0.9% 1,000 ML IV ONE (18:04)
[2019-04-12] MEDS ORDERED: HYDROmorphone 1 MG/ML CARPUJECT IVP STA (18:04)
--- NOTE | 2019-04-12 18:07 | ED Physician Documentation ---
PD HPI ABD PAIN - Stated complaint Stated Complaint: RT SIDE PAIN, HEADACHE - Chief complaint Chief Complaint: Abd Pain - History obtained from History obtained from: Patient - History of Present Illness Timing - onset: How many days ago (several days) Timing - duration: Days Timing - details: Gradual onset Pain level max: 8 Pain level now: 8 Quality: Aching, Pain Location: Other (R flank) Radiation: No: Chest, , Lower back, Left flank, Left shoulder, Right flank, Right shoulder, Upper back Improved by: Other (nothing) Worsened by: No: Eating, Moving, Breathing, Position, Palpation Associated symptoms: Nausea. No: Fever, Vomiting, Hematemesis, Diarrhea, Constipation, Melena, Hematochezia, Dysuria, Hematuria Similar symptoms before: Diagnosis (kidney stones) Recently seen: Not recently seen Review of Systems Constitutional: denies: Fever, Chills Nose: denies: Rhinorrhea / runny nose, Congestion Respiratory: denies: Cough GI: reports: Nausea. 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 : Kidney stones, Other HEENT: None Psych: Anxiety, Panic attacks Musculoskeletal: None Derm: None - Past Surgical History Past Surgical History: Yes General: Cholecystectomy /JUTE BAG CLIPPER: Hysterectomy HEENT: Tonsil/Adenoidectomy - Present Medications Home Medications: Ambulatory Orders Medication Instructions Recorded Confirmed Gabapentin 1,800 mg PO DAILY 02/09/15 04/08/17 Cetirizine [ZyrTEC] 10 mg PO DAILY 11/23/16 04/08/17 Gemfibrozil [Lopid] 600 mg PO DAILY 11/23/16 04/08/17 Omeprazole 40 mg PO DAILY 11/23/16 04/08/17 LORazepam [Ativan] 1 mg PO ONCE 04/27/18 Vortioxetine Hydrobromide 04/27/18 [Trintellix] Naproxen 500 mg PO BID PRN #60 tablet 05/06/18 Oxycodone HCl/Acetaminophen 1 - 2 each PO Q6H PRN #14 tablet 12/17/18 [Percocet 5-325 mg Tablet] Promethazine [Phenergan] 25 mg PO Q6H PRN #10 tab 05/19/18 Oxycodone HCl/Acetaminophen 1 - 2 each PO Q6H PRN #14 tablet 05/28/18 [Percocet 5-325 mg Tablet] Promethazine [Phenergan] 25 mg PO Q6H PRN #10 tab 05/28/18 Nitrofurantoin Monohyd/M-Cryst 100 mg PO BID #10 capsule 07/02/18 [Macrobid 100 mg Capsule] Phenazopyridine HCl [Pyridium] 200 mg PO TID PRN #6 tablet 07/02/18 Metronidazole [Flagyl] 500 mg PO BID #14 tablet 07/15/18 Ondansetron Odt [Zofran] 4 mg TL Q6H PRN #10 tablet 07/15/18 Oxycodone HCl/Acetaminophen 1 - 2 each PO Q6H PRN #18 tablet 07/15/18 [Percocet 5-325 mg Tablet] Oxycodone HCl/Acetaminophen 1 - 2 each PO Q6H PRN #14 tablet 09/04/18 [Percocet 5-325 mg Tablet] Oxycodone HCl/Acetaminophen 1 - 2 each PO Q6H PRN #8 tablet 04/12/19 [Percocet 5-325 mg Tablet] - Allergies Allergies/Adverse Reactions: Allergies Allergy/AdvReac Type Severity Reaction Status Date / Time amoxicillin trihydrate * Allergy Rash Verified 04/11/19 20:41 [From Augmentin] diphenhydramine HCl * Allergy Respiratory Verified 04/11/19 20:41 [From Benadryl] hydrocodone Allergy Itching Verified 04/11/19 20:41 morphine Allergy Rash Verified 04/11/19 20:41 NSAIDS (Non-Steroidal Allergy Unknown Verified 04/11/19 20:41 Anti-Inflamma potassium clavulanate * Allergy Rash Verified 04/11/19 20:41 [From Augmentin] aspirin AdvReac Unknown Unknown Verified 04/11/19 20:41 cephalexin monohydrate * AdvReac Unknown Rash Verified 04/11/19 20:41 [From Keflex] erythromycin base AdvReac Unknown Rash Verified 04/11/19 20:41 [Erythromycin Base] Sulfa (Sulfonamide AdvReac Unknown Rash Verified 04/11/19 20:41 Antibiotics) bees AdvReac Unknown Emesis Uncoded 09/04/18 20:47 - Social History Does the pt smoke?: Yes Smoking Status: Current every day smoker Does the pt drink ETOH?: No Does the pt have substance abuse?: No - Immunizations Immunizations are current?: Yes - POLST Patient has POLST: No PD ED PE NORMAL - Vitals Vital signs reviewed: Yes - General General: Alert and oriented X 3, No acute distress - HEENT HEENT: Moist mucous membranes - Neck Neck: Supple, no meningeal sign - Cardiac Cardiac: RRR, Strong equal pulses - Respiratory Respiratory: No respiratory distress, Clear bilaterally - Abdomen Abdomen: Soft, Non tender, Non distended - Back Back: No CVA TTP - Derm Derm: Warm and dry - Neuro Neuro: Alert and oriented X 3 - Psych Psych: Normal mood, Normal affect Results - Vitals Vitals: Vital Signs - 24 hr 04/12/19 04/12/19 04/12/19 17:29 17:38 19:30 Temperature 36.8 C Heart Rate 114 H 98 83 Respiratory 18 18 16 Rate Blood Pressure 137/83 H 131/79 H 130/73 O2 Saturation 98 98 98 Oxygen O2 Source Room air - Labs Labs: Laboratory Tests 04/12/19 04/12/19 04/12/19 17:45 18:00 18:00 WBC 6.9 RBC 4.07 L Hgb 11.8 L Hct 36.5 L MCV 89.7 MCH 29.0 MCHC 32.3 RDW 12.3 Plt Count 226 MPV 9.2 Neut # (Auto) 4.3 Lymph # (Auto) 2.1 Chaves # (Auto) 0.3 Eos # (Auto) 0.1 Baso # (Auto) 0.0 Absolute Nucleated RBC 0.00 Nucleated RBC % 0.0 Sodium 141 Potassium 3.0 L Chloride 103 Carbon Dioxide 31 Anion Gap 7.0 BUN 15 Creatinine 0.7 Estimated GFR (MDRD) 87 L Glucose 194 H Calcium 8.9 Total Bilirubin 0.5 AST 17 ALT 17 Alkaline Phosphatase 69 Total Protein 7.5 Albumin 4.2 Globulin 3.3 Albumin/Globulin Ratio 1.3 Lipase 37 Urine Color YELLOW Urine Clarity CLEAR Urine pH 6.5 Ur Specific [place] 1.015 Urine Protein NEGATIVE Urine Glucose (UA) NEGATIVE Urine Ketones NEGATIVE Urine Occult Blood NEGATIVE Urine Nitrite NEGATIVE Urine Bilirubin NEGATIVE Urine Urobilinogen 0.2 (NORMAL) Ur Leukocyte Esterase NEGATIVE Ur Microscopic Review NOT INDICATED Urine Culture Comments NOT INDICATED - Rads (name of study) CT abd.pelvis Radiology: Prelim report reviewed, EMP read contemporaneously, See rad report (No urinary tract stones or obstruction. No acute findings are seen. ) PD MEDICAL DECISION MAKING - ED course Complexity details: reviewed results, re-evaluated patient, considered differential, d/w patient ED course: No acute abnormalities on CT or labratory testing. Pain well controlled. Will prescribe a small amount of pain medication for home. Patient is well- appearing, nontoxic. Afebrile. Patient counseled regarding signs and symptoms for which I believe and urgent re-evaluation would be necessary. Patient with good understanding of and agreement to plan and is comfortable going home at this time This document was made in part using voice recognition software. While efforts are made to proofread this document, sound alike and grammatical errors may occur. Departure - Departure Disposition: 01 Home, Self Care Clinical Impression: Abdominal pain Qualifiers: Abdominal location: unspecified location Qualified Code(s): R10.9 - Unspecified abdominal pain Condition: Good Instructions: ED Abdominal Pain Unkn Cause Follow-Up: Génesis Wray ARNP [Primary Care Provider] - Within 3 Days Prescriptions: Oxycodone HCl/Acetaminophen [Percocet 5-325 mg Tablet] 1 - 2 each PO Q6H PRN #8 tablet PRN Reason: pain Comments: The cause of your symptoms is unclear. Follow-up with your doctor for further care. Your testing is normal today. Do not drink alcohol or drive while on narcotic pain medicine. Note that many narcotic pain relievers also contain tylenol/acetaminophen. Please ensure that your total dose of acetaminophen from all sources does not exceed 3 grams (3000mg) per day. You may constipated on this medication, take a stool softener such as "Colace" twice a day while you are on it. Also recommend a cghh-rja-vmxlmlz laxative such as senna or MiraLAX any day that you do not have a bowel movement. If you received narcotic pain medication in the emergency department, do not drive or operate machinery for the next 24 hours. Discharge Date/Time: 04/12/19 19:41
[2019-04-12 18:09] LABS: BILIRUBIN,URINE NEGATIVE (NEGATIVE); GLUCOSE, URINE (UA) NEGATIVE (NEGATIVE); KETONES,URINE (UA) NEGATIVE (NEGATIVE); LEUKOCYTE ESTERASE, URINE NEGATIVE (NEGATIVE); NITRITE,URINE NEGATIVE (NEGATIVE); OCCULT BLOOD,URINE NEGATIVE (NEGATIVE); PH,URINE 6.5 PH (5.0-7.5); PROTEIN,URINE NEGATIVE (NEGATIVE); UROBILINOGEN,URINE 0.2 (NORMAL) E.U./dL (NORMAL)
[2019-04-12 18:10] LABS: CLARITY,URINE CLEAR (CLEAR)
[2019-04-12 18:14] LABS: BASOPHILS % (AUTO) 0.3 %; EOSINOPHILS # (AUTO) 0.1 10^3/uL (0.0-0.7); EOSINOPHILS % (AUTO) 1.3 %; HGB - HEMOGLOBIN 11.8 g/dL (12.0-16.0); LYMPHOCYTES # (AUTO) 2.1 10^3/uL (1.5-3.5); LYMPHOCYTES % (AUTO) 30.1 %; MEAN CORPUSCULAR HGB CONC 32.3 g/dL (32.0-36.0); MEAN CORPUSCULAR VOLUME 89.7 fL (81.0-99.0); MEAN PLATELET VOLUME 9.2 fL (7.9-10.8); MONOCYTES # (AUTO) 0.3 10^3/uL (0.0-1.0); MONOCYTES % (AUTO) 4.4 %; NEUTROPHILS # (AUTO) 4.3 10^3/uL (1.5-6.6); NEUTROPHILS % (AUTO) 63.3 %; PLT - PLATELET COUNT 226 10^3/uL (130-450); RED BLOOD COUNT 4.07 10^6/uL (4.20-5.40); RED CELL DISTRIBUTION WIDTH 12.3 % (12.0-15.0); WHITE BLOOD COUNT 6.9 x10^3/uL (4.8-10.8)
[2019-04-12 18:30] LABS: ALBUMIN 4.2 g/dL (3.2-5.5); ALBUMIN/GLOBULIN RATIO 1.3 (1.0-2.2); BILIRUBIN,TOTAL 0.5 mg/dL (0.2-1.0); CALCIUM 8.9 mg/dL (8.5-10.3); CREATININE 0.7 mg/dL (0.4-1.0); TOTAL PROTEIN 7.5 g/dL (6.7-8.2)
--- NOTE | 2019-04-12 19:17 | CT Report ---
Reason: R flank pain Procedure Date: 04/12/2019 Accession Number: [id number] / [id number] Procedure: CT - Abdomen/Pelvis WO CPT Code: Final Report FULL RESULT: EXAM: CT ABDOMEN AND PELVIS (CT KUB) EXAM DATE: 04/12/2019 06:30 PM. CLINICAL HISTORY: Right flank pain. COMPARISONS: KUB 07/15/2018 5:55 PM. TECHNIQUE: Routine axial helical CT imaging was performed through the abdomen and pelvis without IV contrast. Reconstructions: Coronal and sagittal. In accordance with CT protocol optimization, one or more of the following dose reduction techniques were utilized for this exam: automated exposure control, adjustment of mA and/or KV based on patient size, or use of iterative reconstructive technique. FINDINGS: Lung bases: Unremarkable. Liver: Unremarkable. Status post cholecystectomy. Bile ducts: Unremarkable. Pancreas: Unremarkable Spleen: Unremarkable. Adrenals: Unremarkable. Kidneys: Unremarkable. No urinary tract calculi seen. No hydronephrosis. No hydroureter or ureteral calculi. Bowel: The appendix is not seen. No acute bowel findings are seen. No dilated bowel loops. No free fluid or free air. Pelvis: The bladder and remaining pelvic organs appear unremarkable. Status post hysterectomy. Bones: No acute bone findings. Vasculature: No acute findings. Metal paraumbilical piercing. IMPRESSION: No urinary tract stones or obstruction. No acute findings are seen. See above. RADIA
[2019-04-12] MEDS ORDERED: oxyCODONE 5 MG TABLET PO STA (19:29)
[2019-04-12 19:30] VITALS: BP 130/73
[2019-04-12] MEDS ORDERED: hydrOXYzine PAMOATE 25 MG CAPSULE PO STA (19:35)
== END 2019-04-12 19:41 | disposition home or self-care (01) ==
LOC: ED 17:17
DX: R10.9 Unspecified abdominal pain (principal); R11.0 Nausea; I10 Essential (primary) hypertension; F17.200 Nicotine dependence, unspecified, uncomplicated
CPT/HCPCS: 36415; 74176; 80053; 81003; 83690; 85025; 96361; 96374; 99284; A9270; J1170; 81001; 87086

== ENCOUNTER 2019-10-16 22:33 | Emergency (ER) | payer MEDICAID ==
--- NOTE | 2019-10-16 22:49 | ED Physician Documentation ---
PD HPI FEMALE - Stated complaint Stated Complaint: FEVER/FEM - Chief complaint Chief Complaint: Abd Pain - History obtained from History obtained from: Patient - History of Present Illness Timing - onset: How many days ago (3) Timing - duration: Days (3) Timing - details: Gradual onset, Still present, Waxing and waning Associated symptoms: Abdominal pain (right lower), Dysuria, Urinary frequency. No: Fever, Vaginal discharge Contributing factors: Other (recently on Amox for 10 days for ear infection. Still feels fluid/pressure in ear.). No: Exposed to STD Similar symptoms before: Diagnosis (feels similar to UTI or kidney stones in the past.) Review of Systems Constitutional: denies: Fever, Chills Nose: denies: Rhinorrhea / runny nose, Congestion Throat: denies: Sore throat Respiratory: denies: Cough GI: reports: Abdominal Pain, Diarrhea (loose stools the past couple of days). denies: Nausea, Vomiting, Constipation, Bloody / black stool : reports: Frequency. 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 /DIRECTOR EHS: Hysterectomy HEENT: Tonsil/Adenoidectomy - Present Medications Home Medications: Ambulatory Orders Medication Instructions Recorded Confirmed Gabapentin 1,800 mg PO DAILY 02/09/15 04/08/17 Cetirizine [ZyrTEC] 10 mg PO DAILY 11/23/16 04/08/17 Omeprazole 40 mg PO DAILY 11/23/16 04/08/17 gemfibroziL [Lopid] 600 mg PO DAILY 11/23/16 04/08/17 LORazepam [Ativan] 1 mg PO ONCE 04/27/18 Vortioxetine Hydrobromide 04/27/18 [Trintellix] Naproxen 500 mg PO BID PRN #60 tablet 05/06/18 Oxycodone HCl/Acetaminophen 1 - 2 each PO Q6H PRN #14 tablet 05/19/18 [Percocet 5-325 mg Tablet] Promethazine [Phenergan] 25 mg PO Q6H PRN #10 tab 12/17/18 Oxycodone HCl/Acetaminophen 1 - 2 each PO Q6H PRN #14 tablet 05/28/18 [Percocet 5-325 mg Tablet] Promethazine [Phenergan] 25 mg PO Q6H PRN #10 tab 05/28/18 Nitrofurantoin Monohyd/M-Cryst 100 mg PO BID #10 capsule 07/02/18 [Macrobid 100 mg Capsule] Phenazopyridine HCl [Pyridium] 200 mg PO TID PRN #6 tablet 07/02/18 Ondansetron Odt [Zofran] 4 mg TL Q6H PRN #10 tablet 07/15/18 Oxycodone HCl/Acetaminophen 1 - 2 each PO Q6H PRN #18 tablet 07/15/18 [Percocet 5-325 mg Tablet] metroNIDAZOLE [Flagyl] 500 mg PO BID #14 tablet 07/15/18 Oxycodone HCl/Acetaminophen 1 - 2 each PO Q6H PRN #14 tablet 09/04/18 [Percocet 5-325 mg Tablet] Oxycodone HCl/Acetaminophen 1 - 2 each PO Q6H PRN #8 tablet 04/12/19 [Percocet 5-325 mg Tablet] Oxycodone HCl/Acetaminophen 1 each PO Q6H PRN #12 tablet 10/17/19 [Percocet 5-325 mg Tablet] Saccharomyces Boulardii [Florastor] 250 mg PO BID #20 capsule 10/17/19 dexAMETHasone [Decadron] 4 mg PO DAILY #5 tablet 10/17/19 - Allergies Allergies/Adverse Reactions: Allergies Allergy/AdvReac Type Severity Reaction Status Date / Time amoxicillin trihydrate * Allergy Rash Verified 04/11/19 20:41 [From Augmentin] diphenhydramine HCl * Allergy Respiratory Verified 04/11/19 20:41 [From Benadryl] hydrocodone Allergy Itching Verified 04/11/19 20:41 morphine Allergy Rash Verified 04/11/19 20:41 NSAIDS (Non-Steroidal Allergy Unknown Verified 04/11/19 20:41 Anti-Inflamma potassium clavulanate * Allergy Rash Verified 04/11/19 20:41 [From Augmentin] aspirin AdvReac Unknown Unknown Verified 04/11/19 20:41 cephalexin monohydrate * AdvReac Unknown Rash Verified 04/11/19 20:41 [From Keflex] erythromycin base AdvReac Unknown Rash Verified 04/11/19 20:41 [Erythromycin Base] Sulfa (Sulfonamide AdvReac Unknown Rash Verified 04/11/19 20:41 Antibiotics) bees AdvReac Unknown Emesis Uncoded 09/04/18 20:47 - Social History Does the pt smoke?: Yes Smoking Status: Current every day smoker Does the pt drink ETOH?: No Does the pt have substance abuse?: No - Immunizations Immunizations are current?: Yes - POLST Patient has POLST: No PD ED PE NORMAL - Vitals Vital signs reviewed: Yes - General General: Alert and oriented X 3, Well developed/nourished, Other (appears in pain) - HEENT HEENT: Moist mucous membranes, Pharynx benign - Neck Neck: Supple, no meningeal sign - Cardiac Cardiac: RRR, No murmur - Respiratory Respiratory: Clear bilaterally - Abdomen Abdomen: Normal bowel sounds, Soft, Non distended, No organomegaly, Other (Tender in the right lower quadrant to mid abdomen without any percussion or rebound tenderness. Bowel sounds are present and slightly hyperactive. There is some CVA tenderness on the right. There is no rash or sores noted.) - Derm Derm: Normal color, Warm and dry - Extremities Extremities: No tenderness to palpate, No edema, No calf tenderness / cord - Neuro Neuro: Alert and oriented X 3, No motor deficit, Normal speech - Psych Psych: Normal mood, Normal affect Results - Vitals Vitals: Vital Signs - 24 hr 10/16/19 10/16/19 10/17/19 22:43 23:53 00:59 Temperature 37.2 C Heart Rate 99 84 Respiratory 18 16 16 Rate Blood Pressure 127/83 H 126/87 H O2 Saturation 100 95 Oxygen O2 Source Room air - Labs Labs: Laboratory Tests 10/16/19 22:55 Urine Color YELLOW Urine Clarity CLEAR Urine pH 7.0 Ur Specific [place] 1.015 Urine Protein NEGATIVE Urine Glucose (UA) NEGATIVE Urine Ketones NEGATIVE Urine Occult Blood NEGATIVE Urine Nitrite NEGATIVE Urine Bilirubin NEGATIVE Urine Urobilinogen 0.2 (NORMAL) Ur Leukocyte Esterase NEGATIVE Ur Microscopic Review NOT INDICATED Urine Culture Comments NOT INDICATED - Rads (name of study) KUB CT Radiology: Prelim report reviewed (No kidney stones nor hydroureter. Appendix is identified and normal. Uterus is absent. No other acute abnormality.), See rad report PD MEDICAL DECISION MAKING - ED course Complexity details: reviewed results, re-evaluated patient (No signs of UTI nor kidney stone nor appendicitis. She had recently been on antibiotics and has had loose stool for couple days so consider some element of floral dysfunction and so we can try some probiotics as well as some anti-inflammatories.), considered differential (Consider pyelonephritis or bladder infection versus kidney stone. Could consider appendicitis though her exam does not seem as notable for localized pain at McBurney's point. She states she is status post hysterectomy and cholecystectomy so on likely to be related to those obviously. She still has her ovaries but states there more anteriorly placed on previous studies and does not have any history of cysts or such. We can get a urine and blood count and CT scan to better evaluate.), d/w patient Departure - Departure Disposition: 01 Home, Self Care Clinical Impression: Right sided abdominal pain Condition: Stable Record reviewed to determine appropriate education?: Yes Instructions: ED Abdominal Pain Unkn Cause Prescriptions: dexAMETHasone [Decadron] 4 mg PO DAILY #5 tablet Oxycodone HCl/Acetaminophen [Percocet 5-325 mg Tablet] 1 each PO Q6H PRN #12 tablet PRN Reason: pain Saccharomyces Boulardii [Florastor] 250 mg PO BID #20 capsule Comments: Stay well-hydrated. Use the Florastor probiotic as I am wondering if the pain and loose stool you are having relates to an imbalance of the normal intestinal dat subsequent to the recent antibiotics you are on. Use Tylenol 4 times a day for pains and add Percocet if needed for worse pain in the next 2 to 3 days. Decadron anti-inflammatory to help with potential inflammation through the intestine causing the pain and also to help with the fluid still in the middle ear after your recent ear infection. Recheck if not improving well over the next 2 to 3 days return sooner if worse. Your urine sample did not show any signs of infection. The CT scan did not show any stones and it did show a normal appendix and did not show any other obvious cause for the pains. Things I would not show would be intestinal irritation or musculoskeletal pain or such Discharge Date/Time: 10/17/19 01:00
[2019-10-16 22:58] LABS: BILIRUBIN,URINE NEGATIVE (NEGATIVE); GLUCOSE, URINE (UA) NEGATIVE (NEGATIVE); KETONES,URINE (UA) NEGATIVE (NEGATIVE); LEUKOCYTE ESTERASE, URINE NEGATIVE (NEGATIVE); NITRITE,URINE NEGATIVE (NEGATIVE); OCCULT BLOOD,URINE NEGATIVE (NEGATIVE); PROTEIN,URINE NEGATIVE (NEGATIVE); UROBILINOGEN,URINE 0.2 (NORMAL) E.U./dL (NORMAL)
[2019-10-16 22:59] LABS: CLARITY,URINE CLEAR (CLEAR)
[2019-10-16] MEDS ORDERED: CHERRY SYRUP 10 ML UDC PO ONE (23:06)
[2019-10-16] MEDS ORDERED: DEXAMETHASONE 10 MG/ML VIAL PO STA (23:06)
[2019-10-16] MEDS ORDERED: ONDANSETRON ODT 4 MG TABLET TL STA (23:06)
[2019-10-16] MEDS ORDERED: oxyCODONE 5 MG TABLET PO STA (23:06)
--- NOTE | 2019-10-17 00:19 | CT Report ---
Reason: right abd/flank pain Procedure Date: 10/16/2019 Accession Number: [id number] / [id number] Procedure: CT - Abdomen/Pelvis WO CPT Code: Final Report FULL RESULT: EXAM: CT ABDOMEN AND PELVIS (CT KUB) EXAM DATE: 10/16/2019 11:46 PM. CLINICAL HISTORY: Right abd/flank pain. Right flank pain for 3 days. COMPARISONS: CT ABDOMEN/PELVIS W/O 04/12/2019 6:22 PM. TECHNIQUE: Routine axial helical CT imaging was performed through the abdomen and pelvis without IV contrast. Reconstructions: Coronal and sagittal. In accordance with CT protocol optimization, one or more of the following dose reduction techniques were utilized for this exam: automated exposure control, adjustment of mA and/or KV based on patient size, or use of iterative reconstructive technique. FINDINGS: Lung Bases: Unremarkable. Right Kidney/Ureter: No stones, hydronephrosis, or hydroureter. No perinephric fat stranding. Left Kidney/Ureter: No stones, hydronephrosis, or hydroureter. No perinephric fat stranding. Other Solid Organs: Noncontrast images of the solid organs are grossly unremarkable. Gallbladder/Bile Ducts: Cholecystectomy. No significant biliary dilation. Peritoneal Cavity: No free fluid, free air or nixon adenopathy. Bowel is grossly unremarkable. Appendix is normal. Pelvic Organs: No bladder stones or significant wall thickening. Status post hysterectomy. Adnexa are unremarkable on noncontrast CT. Vasculature: Atherosclerotic vascular disease. No abdominal aortic aneurysm. Other: Degenerative disk disease at L5-S1. No acute bony findings. IMPRESSION: 1. No acute findings on noncontrast CT to account for flank pain. Specifically, no urinary tract stones or obstruction. 2. Normal appendix. 3. Status post cholecystectomy and hysterectomy. RADIA
[2019-10-17] MEDS ORDERED: oxyCODONE/ACET 5/325 Prepack 4 PO STA (00:39)
[2019-10-17 01:00] VITALS: BP 126/87
== END 2019-10-17 01:00 | disposition home or self-care (01) ==
LOC: ED 22:33
DX: R10.31 Right lower quadrant pain (principal); R19.7 Diarrhea, unspecified; I10 Essential (primary) hypertension; Z87.442 Personal history of urinary calculi; Z90.710 Acquired absence of both cervix and uterus; Z90.49 Acquired absence of other specified parts of digestive tract; F17.200 Nicotine dependence, unspecified, uncomplicated
CPT/HCPCS: 74176; 81003; 99284; A9270; Q0162; 81001; 87086

== ENCOUNTER 2020-02-14 19:58 | Emergency (ER) | payer MEDICAID ==
--- NOTE | 2020-02-14 20:32 | ED Physician Documentation ---
History of Present Illness - Stated complaint Stated Complaint: TAWANNA,FEMALE - Chief complaint Chief Complaint: UTI - History obtained from History obtained from: Patient - Additonal information Additional information: Sick for 3 days of bilateral ear pain, nasal congestion, feeling hot and cold. Being uncomfortable having to wear a mask. Bilateral flank pain. Left worse than right. Review of Systems Constitutional: reports: Chills. 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 : Kidney stones, Other HEENT: None Psych: Anxiety, Panic attacks Musculoskeletal: None Derm: None Other Past Medical History: Frequent kidney infection - Past Surgical History Past Surgical History: Yes General: Cholecystectomy /[employer] CARE CENTER MANAGER: Hysterectomy HEENT: Tonsil/Adenoidectomy - Present Medications Home Medications: Ambulatory Orders Medication Instructions Recorded Confirmed Gabapentin 1,800 mg PO DAILY 02/09/15 04/08/17 Cetirizine [ZyrTEC] 10 mg PO DAILY 11/23/16 04/08/17 Omeprazole 40 mg PO DAILY 11/23/16 04/08/17 gemfibroziL [Lopid] 600 mg PO DAILY 11/23/16 04/08/17 LORazepam [Ativan] 1 mg PO ONCE 04/27/18 Vortioxetine Hydrobromide 04/27/18 [Trintellix] Naproxen 500 mg PO BID PRN #60 tablet 05/06/18 Oxycodone HCl/Acetaminophen 1 - 2 each PO Q6H PRN #14 tablet 05/19/18 [Percocet 5-325 mg Tablet] Promethazine [Phenergan] 25 mg PO Q6H PRN #10 tab 05/19/18 Oxycodone HCl/Acetaminophen 1 - 2 each PO Q6H PRN #14 tablet 05/28/18 [Percocet 5-325 mg Tablet] Promethazine [Phenergan] 25 mg PO Q6H PRN #10 tab 05/28/18 Nitrofurantoin Monohyd/M-Cryst 100 mg PO BID #10 capsule 07/02/18 [Macrobid 100 mg Capsule] Phenazopyridine HCl [Pyridium] 200 mg PO TID PRN #6 tablet 07/02/18 Ondansetron Odt [Zofran] 4 mg TL Q6H PRN #10 tablet 07/15/18 Oxycodone HCl/Acetaminophen 1 - 2 each PO Q6H PRN #18 tablet 07/15/18 [Percocet 5-325 mg Tablet] metroNIDAZOLE [Flagyl] 500 mg PO BID #14 tablet 07/15/18 Oxycodone HCl/Acetaminophen 1 - 2 each PO Q6H PRN #14 tablet 09/04/18 [Percocet 5-325 mg Tablet] Oxycodone HCl/Acetaminophen 1 - 2 each PO Q6H PRN #8 tablet 04/12/19 [Percocet 5-325 mg Tablet] Oxycodone HCl/Acetaminophen 1 each PO Q6H PRN #12 tablet 10/17/19 [Percocet 5-325 mg Tablet] Saccharomyces Boulardii [Florastor] 250 mg PO BID #20 capsule 10/17/19 dexAMETHasone [Decadron] 4 mg PO DAILY #5 tablet 10/17/19 Azithromycin [Zithromax] 1 tab PO DAILY #4 tab 02/14/20 predniSONE [Deltasone] 20 mg PO [id number] #21 tab 02/14/20 - Allergies Allergies/Adverse Reactions: Allergies Allergy/AdvReac Type Severity Reaction Status Date / Time amoxicillin trihydrate * Allergy Rash Verified 02/14/20 20:13 [From Augmentin] diphenhydramine HCl * Allergy Respiratory Verified 02/14/20 20:13 [From Benadryl] hydrocodone Allergy Itching Verified 02/14/20 20:13 morphine Allergy Rash Verified 02/14/20 20:13 NSAIDS (Non-Steroidal Allergy Unknown Verified 02/14/20 20:13 Anti-Inflamma potassium clavulanate * Allergy Rash Verified 02/14/20 20:13 [From Augmentin] aspirin AdvReac Unknown Unknown Verified 02/14/20 20:13 cephalexin monohydrate * AdvReac Unknown Rash Verified 02/14/20 20:13 [From Keflex] erythromycin base AdvReac Unknown Rash Verified 02/14/20 20:13 [Erythromycin Base] Sulfa (Sulfonamide AdvReac Unknown Rash Verified 02/14/20 20:13 Antibiotics) bees AdvReac Unknown Emesis Uncoded 09/04/18 20:47 - Social History Does the pt smoke?: Yes Smoking Status: Current every day smoker Does the pt drink ETOH?: No Does the pt have substance abuse?: No - Immunizations Immunizations are current?: Yes - POLST Patient has POLST: No PD ED PE NORMAL - Vitals Vital signs reviewed: Yes - General General: Alert and oriented X 3, No acute distress - HEENT HEENT: PERRL, Other (Retracted TMs, no otitis. Tender over the left maxillary sinus.) - Neck Neck: Supple, no meningeal sign, No bony TTP - Abdomen Abdomen: Non tender - Back Back: Other (Mild bilateral flank tenderness, left worse than right) - Neuro Neuro: Alert and oriented X 3, Normal speech Results - Vitals Vitals: Vital Signs - 24 hr 02/14/20 20:13 Temperature 36.9 C Heart Rate 116 H Respiratory 16 Rate Blood Pressure 183/83 H O2 Saturation 96 Oxygen O2 Source Room air - Labs Labs: Laboratory Tests 02/14/20 20:40 Urine Color YELLOW Urine Clarity CLEAR Urine pH 6.0 Ur Specific [place] 1.020 Urine Protein NEGATIVE Urine Glucose (UA) NEGATIVE Urine Ketones NEGATIVE Urine Occult Blood NEGATIVE Urine Nitrite NEGATIVE Urine Bilirubin NEGATIVE Urine Urobilinogen 0.2 (NORMAL) Ur Leukocyte Esterase NEGATIVE Ur Microscopic Review NOT INDICATED Urine Culture Comments NOT INDICATED PD MEDICAL DECISION MAKING - ED course ED course: 55-year-old woman with sinusitis. Also flank pain but normal urinalysis. Amoxicillin/Augmentin not used due to allergy for same. Departure - Departure Disposition: 01 Home, Self Care Clinical Impression: Sinusitis Qualifiers: Sinusitis location: maxillary Chronicity: acute Recurrence: recurrent Qualified Code(s): J01.01 - Acute recurrent maxillary sinusitis Condition: Good Instructions: ED Sinusitis Abx Tx Prescriptions: predniSONE [Deltasone] 20 mg PO [id number] #21 tab Azithromycin [Zithromax] 1 tab PO DAILY #4 tab Comments: Call your doctor to arrange a follow-up appointment, make the next available appointment. In the interim, return anytime if worse or if new symptoms develop.
[2020-02-14 20:48] LABS: BILIRUBIN,URINE NEGATIVE (NEGATIVE); GLUCOSE, URINE (UA) NEGATIVE (NEGATIVE); KETONES,URINE (UA) NEGATIVE (NEGATIVE); LEUKOCYTE ESTERASE, URINE NEGATIVE (NEGATIVE); NITRITE,URINE NEGATIVE (NEGATIVE); OCCULT BLOOD,URINE NEGATIVE (NEGATIVE); PROTEIN,URINE NEGATIVE (NEGATIVE); UROBILINOGEN,URINE 0.2 (NORMAL) E.U./dL (NORMAL)
[2020-02-14 20:53] LABS: CLARITY,URINE CLEAR (CLEAR)
[2020-02-14] MEDS ORDERED: AZITHROMYCIN 250 MG TABLET PO STA (21:14)
[2020-02-14] MEDS ORDERED: oxyCODONE/ACET 5/325 Prepack 4 PO STA (21:15)
[2020-02-14] MEDS ORDERED: predniSONE 20 MG TABLET PO STA (21:27)
[2020-02-14 21:36] VITALS: BP 117/71
== END 2020-02-14 21:34 | disposition home or self-care (01) ==
LOC: ED 19:58
DX: J01.01 Acute recurrent maxillary sinusitis (principal); E78.00 Pure hypercholesterolemia, unspecified; I10 Essential (primary) hypertension; Z90.710 Acquired absence of both cervix and uterus
CPT/HCPCS: 81003; 99283; 99284; A9270; J7512; 81001; 87086

== ENCOUNTER 2020-06-13 08:00 | Outpatient (CLI) | payer MEDICAID ==
--- NOTE | 2020-06-13 21:08 | XRAY Report ---
PROCEDURE: Knee 3 View LT INDICATIONS: L KNEE PX TECHNIQUE: 3 views of the left knee(s) were acquired. COMPARISON: None. FINDINGS: Bones: No fractures or dislocations. Mild medial compartment joint space loss. No suspicious bony le sions. Soft tissues: No joint effusion. No suspicious soft tissue calcifications. IMPRESSION: Minor degenerative change.. Reviewed by: Kaylee Canela MD on 06/13/2020 9:07 PM [facility] Approved by: Kyalee Canela MD on 06/13/2020 9:07 PM PST Station ID: [id number]
== END 2020-06-13 23:59 | disposition home or self-care (01) ==
LOC: DI.N 08:00
PROVIDERS: ATTEND Family Medicine
DX: M17.12 Unilateral primary osteoarthritis, left knee (principal)

== ENCOUNTER 2021-06-16 07:00 | Outpatient (CLI) | payer MEDICAID ==
[2021-06-16 18:08] LABS: BASOPHILS % (AUTO) 0.5 %; EOSINOPHILS # (AUTO) 0.2 10^3/uL (0.0-0.7); EOSINOPHILS % (AUTO) 1.9 %; HCT - HEMATOCRIT 37.1 % (37.0-47.0); HGB - HEMOGLOBIN 12.2 g/dL (12.0-16.0); LYMPHOCYTES # (AUTO) 2.8 10^3/uL (1.5-3.5); MEAN CORPUSCULAR HGB CONC 32.9 g/dL (32.0-36.0); MEAN CORPUSCULAR VOLUME 91.2 fL (81.0-99.0); MEAN PLATELET VOLUME 10.3 fL (7.9-10.8); MONOCYTES # (AUTO) 0.4 10^3/uL (0.0-1.0); MONOCYTES % (AUTO) 5.2 %; NEUTROPHILS # (AUTO) 4.8 10^3/uL (1.5-6.6); NEUTROPHILS % (AUTO) 58.3 %; PLT - PLATELET COUNT 202 10^3/uL (130-450); RED BLOOD COUNT 4.07 10^6/uL (4.20-5.40); RED CELL DISTRIBUTION WIDTH 12.3 % (12.0-15.0); WHITE BLOOD COUNT 8.2 x10^3/uL (4.8-10.8)
[2021-06-16 18:28] LABS: ALBUMIN 4.4 g/dL (3.2-5.5); ALBUMIN/GLOBULIN RATIO 1.3 (1.0-2.2); ALKALINE PHOSPHATASE 65 IU/L (42-121); ALT ALANINE AMINOTRANSFERASE 17 IU/L (10-60); AST ASPARTATE AMINOTRANSFERASE 16 IU/L (10-42); BILIRUBIN,TOTAL 0.7 mg/dL (0.2-1.0); BUN - BLOOD UREA NITROGEN 17 mg/dL (6-20); CALCIUM 9.7 mg/dL (8.5-10.3); CARBON DIOXIDE - CO2 30 mmol/L (21-32); CHLORIDE 101 mmol/L (101-111); CHOL/HDL RATIO 5.2 (<4.4); CHOLESTEROL 222 mg/dL; CREATININE 0.9 mg/dL (0.4-1.0); GFR - MDRD 65 (>89); GLUCOSE 92 mg/dL (70-100); HDL CHOLESTEROL 43 mg/dL; LDL CHOLESTEROL,CALCULATED 149 mg/dL; LDL/HDL RATIO 3.5 (<4.4); SODIUM 142 mmol/L (135-145); TOTAL PROTEIN 7.9 g/dL (6.7-8.2); TRIGLYCERIDES 148 mg/dL; VLDL CHOLESTEROL 30 mg/dL
[2021-06-16 18:37] LABS: THYROID STIMULATING HORMONE 1.17 uIU/mL (0.34-5.60)
== END 2021-06-16 23:59 | disposition home or self-care (01) ==
LOC: LAB.WCP 07:00
PROVIDERS: ATTEND Family Medicine
DX: Z00.00 Encounter for general adult medical examination without abnormal findings (principal); E87.6 Hypokalemia
CPT/HCPCS: 36415; 80053; 80061; 83721; 84443; 85025

== ENCOUNTER 2021-07-14 10:01 | Outpatient (CLI) | payer MEDICAID | END 2021-07-14 10:02 | disposition home or self-care (01) | LOC: LAB.N 10:01 | PROVIDERS: ATTEND Surgery | DX: Z01.812 Encounter for preprocedural laboratory examination (principal); Z12.11 Encounter for screening for malignant neoplasm of colon; J45.909 Unspecified asthma, uncomplicated; Z87.820 Personal history of traumatic brain injury; F41.1 Generalized anxiety disorder; Z20.822 Contact with and (suspected) exposure to COVID-19 ==

== ENCOUNTER 2021-07-17 11:26 | Day surgery (SDC) | payer MEDICAID ==
[2021-07-17] MEDS ORDERED: LACTATED RINGERS 1,000 ML IV ONE ×2 (11:30→13:08)
--- NOTE | 2021-07-17 12:11 | ANESTHESIA ---
Pre-Anesthesia VS, & Labs - Diagnosis screening - Procedure colonoscopy Vital Signs: Temp Pulse Resp BP Pulse Ox 36.9 C 103 H 20 118/83 H 97 07/17/21 11:41 07/17/21 11:41 07/17/21 11:41 07/17/21 11:41 07/17/21 11:41 Height: 5 ft Weight (kg): 64 kg Body Mass Index: 27.5 BMI Classification: Overweight - NPO >8 hours - Is Patient ?: No Home Medications and Allergies Home Medications: Ambulatory Orders Albuterol Sulfate [Proair Hfa Inhaler] 1 - 2 puffs INH Q4H PRN 07/06/21 EPINEPHrine [Epinephrine] 0.3 mg IJ ONCE PRN 07/06/21 Multivitamin 1 each PO DAILY 07/06/21 Multivitamin with Minerals [Hair, Skin and Nails] 1 each PO DAILY 07/06/21 Sertraline [Zoloft] 50 mg PO DAILY 07/06/21 Sumatriptan Succinate [Imitrex] 50 mg PO ONCE PRN 07/06/21 hydrOXYzine HCL [Hydroxyzine HCl] 25 mg PO BID PRN 07/06/21 Gabapentin 1,200 mg PO TID 02/09/15 Cetirizine [ZyrTEC] 10 mg PO DAILY 11/23/16 Albuterol Sulfate [Proair Hfa Inhaler] 1 - 2 puffs INH Q4H PRN 07/06/21 EPINEPHrine [Epinephrine] 0.3 mg IJ ONCE PRN 07/06/21 Multivitamin 1 each PO DAILY 07/06/21 Multivitamin with Minerals [Hair, Skin and Nails] 1 each PO DAILY 07/06/21 Sertraline [Zoloft] 50 mg PO DAILY 07/06/21 Sumatriptan Succinate [Imitrex] 50 mg PO ONCE PRN 07/06/21 hydrOXYzine HCL [Hydroxyzine HCl] 25 mg PO BID PRN 07/06/21 Allergies/Adverse Reactions: Allergies Allergy/AdvReac Type Severity Reaction Status Date / Time amoxicillin trihydrate * Allergy Rash Verified 07/17/21 11:57 [From Augmentin] diphenhydramine HCl * Allergy Respiratory Verified 07/17/21 11:57 [From Benadryl] hydrocodone Allergy Itching Verified 07/17/21 11:57 morphine Allergy Rash Verified 07/17/21 11:57 NSAIDS (Non-Steroidal Allergy Unknown Verified 07/17/21 11:57 Anti-Inflamma potassium clavulanate * Allergy Rash Verified 07/17/21 11:57 [From Augmentin] aspirin AdvReac Unknown Unknown Verified 07/17/21 11:57 cephalexin monohydrate * AdvReac Unknown Rash Verified 07/17/21 11:57 [From Keflex] erythromycin base AdvReac Unknown Rash Verified 07/17/21 11:57 [Erythromycin Base] Sulfa (Sulfonamide AdvReac Unknown Rash Verified 07/17/21 11:57 Antibiotics) bees AdvReac Unknown Emesis Uncoded 07/17/21 11:57 Anes History & Medical History - Anesthetic History Anesthesia Complications: reports: No previous complications - Medical History Cardiovascular: reports: Hypertension Pulmonary: reports: Asthma Gastrointestinal: reports: None Urinary: reports: Chronic bladder infection, Kidney stones Neuro: reports: None Musculoskeletal: reports: Fibromyalgia, Chronic back pain Endocrine/Autoimmune: reports: None Blood Disorders: reports: None Skin: reports: Eczema Smoking Status: Current every day smoker - Surgical History General: reports: Cholecystectomy Eyes Ears Nose Throat (EENT): reports: Tonsil/Adenoidectomy Urologic: reports: Ureterolithotomy (stones) Gynecologic: reports: Hysterectomy Exam General: Alert, Oriented x3, Cooperative Dental: WNL, Dentures full Upper Mouth Opening: Greater than 4 Fingerbreadths Neck Mobility: Normal Mallampati classification: II Thyromental Distance: greater than 6 cm Respiratory: Lungs clear Cardiovascular: Regular rate, Normal S1, Normal S2 Plan Anesthesia Type: Total IV Consent for Procedure(s) Verified and Reviewed: Yes Code Status: Attempt Resuscitation ASA classification: 2-Mild systemic disease Is this case an emergency?: No
[2021-07-17] MEDS ORDERED: PROPOFOL 500 MG/50 ML 500 MG/50 ML VIAL ONE (12:46)
[2021-07-17 13:49] VITALS: BP 109/68
--- NOTE | 2021-07-17 17:02 | ANESTHESIA POST OP EVALUATION ---
Anesthesia Post Eval - Post Anesthesia Eval Vitals: Last Vital Signs Temp 36 C L 07/17/21 13:47 Pulse 73 07/17/21 13:47 Resp 16 07/17/21 13:47 BP 109/68 07/17/21 13:47 Pulse Ox 98 07/17/21 13:47 CV Function Including HR & BP: Stable Pain Control: Satisfactory Nausea & Vomiting: Negative Mental Status: Baseline Respiratory Status: Airway Patent Hydration Status: Satisfactory Anesthesia Complications: None
== END 2021-07-17 11:27 | disposition home or self-care (01) ==
LOC: SDS 11:26
PROVIDERS: ATTEND Surgery
DX: Z12.11 Encounter for screening for malignant neoplasm of colon (principal); K57.30 Diverticulosis of large intestine without perforation or abscess without bleeding; F17.210 Nicotine dependence, cigarettes, uncomplicated; J45.909 Unspecified asthma, uncomplicated; F41.1 Generalized anxiety disorder; Z87.820 Personal history of traumatic brain injury
CPT/HCPCS: 45378; J7120